=== PATIENT | male | born 1980 | race American Indian/Alaskan Native ===

== ENCOUNTER 2018-05-01 20:05 | Emergency (ER) | payer SELFPAY ==
[2018-05-01 20:38] LABS: Absolute Lymphocytes (CBC) 3.2 K/uL (0.7-4.9); Absolute Monocytes 0.7 K/uL (0.1-1.3); Absolute Neutrophil 7.1 K/uL (1.8-8.0); Basophils % 0.5 % (0-1.3); Eosinophils % 0.6 % (0-4.4); Lymphocytes % 28.7 % (15.3-44.8); MCH 30.6 pg (27.0-35.0); MCV 89.9 fL (80-100); MPV 8.3 fL (7.6-11.3); Monocytes % 6.4 % (3.3-12.3); RBC Red Blood Cell Count 5.12 M/uL (4.33-5.43)
[2018-05-01 20:46] LABS: Potassium 4.5 mEq/L (3.6-5.0)
--- NOTE | 2018-05-01 20:48 | RAD REPORT ---
EXAM DESCRIPTION: CT - Head C Spine Dominic Bedoya - 05/01/2018 8:23 pm CLINICAL HISTORY: Head and neck injury with chest and abdominal pain status post fall. Head and neck pain . Seizure . TECHNIQUE: Computed axial tomography of the head and cervical spine was obtained Computed axial tomography of the chest, abdomen and pelvis was obtained. 100 cc Isovue-300 was given intravenously coronal and sagittal reconstruction was performed. All CT scans are performed using dose optimization technique as appropriate and may include automated exposure control or mA/KV adjustment according to patient size. COMPARISON: Multiple prior exams. FINDINGS: An intracranial bleed is not seen. The ventricles are normal in caliber. An extra-axial fl uid collection is not noted. Fluid within the sinuses/mastoids is not seen A cervical fracture is not seen. No dislocation is seen. A mediastinal hematoma is not noted. A pleural effusion is not present. A lung contusion is not seen. The liver, spleen, pancreas, adrenals, kidneys and bladder appear unremarkable. IMPRESSION: 1. No acute intracranial abnormality is seen 2. A cervical fracture is not visualized. If the patient continues have symptoms to suggest intracran ial/spinal cord pathology then MRI would be recommended. 3. No traumatic injury involving the chest, abdomen or pelvis is seen.
--- NOTE | 2018-05-01 20:55 | RAD REPORT ---
EXAM DESCRIPTION: RAD - Humerus Left - 05/01/2018 8:40 pm CLINICAL HISTORY: Left arm pain status post fall FINDINGS: No fracture is seen
[2018-05-01] MEDS ORDERED: NA CHLORIDE 0.9% 1,000 ML ONE (21:30)
[2018-05-01] MEDS ORDERED: HYDROCODONE/APAP 10/325 TAB ONE (21:34)
--- NOTE | 2018-05-01 22:49 | ER ---
Nurse's Notes [facility] Name: Anil Prasad Age: 37 yrs Sex: Male : 1980 Arrival Date: 05/01/2018 Time: 20:07 Bed 6 Private MD: Diagnosis: Seizure;Dehydration;Contusion of left upper arm;Contusion of left back wall of thorax Presentation: 05/01 20:09 Presenting complaint: EMS states: Witnessed seizure and fall down flight of stairs lp1 about 1915 today; No hx of seizures; Vomited x1 per EMS, pain to L elbow, feeling dizzy; Denies any ETOH, drug use; Patient states he has been working outside all day; Patient post ictal on arrival of EMS. Transition of care: patient was not received from another setting of care. Onset of symptoms was May 01, 2018 at 19:15. Risk Assessment: Do you want to hurt yourself or someone else? Patient reports no desire to harm self or others. Initial Sepsis Screen: Does the patient meet any 2 criteria? No. Patient's initial sepsis screen is negative. Does the patient have a suspected source of infection? No. Patient's initial sepsis screen is negative. Care prior to arrival: Cervical collar in place. Placed on backboard. IV initiated. 20 GA, in the right antecubital area, Glucose check: 179 Oxygen administered. via nasal cannula. 20:09 Method Of Arrival: EMS: [facility] lp1 20:09 Acuity: BERTRAND 2 lp1 20:17 Mechanism of Injury: Fall from standing position. down flight of stairs. Trauma event lp1 details: Injury occurred in the [facility], Injury occurred: at home. Injury occurred: May 01, 2018 Injury occurred at: 19:15. Trauma Activation: Alert Physician: ED Physician; Name: Dr. Woods; Notified At: 19:57; Arrived At: 19:57 Physician: General Surgeon; Name: N/A; Notified At: 19:57; Arrived At: Physician: Radiology; Name: Alek Camacho; Notified At: 19:57; Arrived At: 19:59 Physician: Respiratory; Name: N/A; Notified At: 19:57; Arrived At: Physician: Lab; Name: N/A; Notified At: 19:57; Arrived At: Historical: - Allergies: 20:16 No Known Allergies; lp1 - Home Meds: 20:16 None [Active]; lp1 - PMHx: 20:16 Asthma; lp1 - PSHx: 20:16 None; lp1 - Immunization history:: Adult Immunizations up to date. - Social history:: Smoking status: Patient uses tobacco products, denies chronic smoking, but will smoke occasionally. - Immunization history: Last tetanus immunization: - up to date. - Ebola Screening: : No symptoms or risks identified at this time. - Family history:: not pertinent. - Hospitalizations: : No recent hospitalization is reported. Screenin:18 Abuse screen: Denies threats or abuse. Denies injuries from another. Nutritional lp1 screening: No deficits noted. Tuberculosis screening: No symptoms or risk factors identified. Fall Risk None identified. Primary Survey: 20:14 A: Airway: patent. Breathing/Chest: Respiratory pattern: regular, Respiratory effort: lp1 spontaneous, Breath sounds: clear, bilaterally. Chest inspection: symmetrical rise and fall of the chest. Circulation: Skin color: pink, Skin temperature: warm, dry. Disability Alert. 21:37 Reassessment Breathing/Chest Respiratory pattern Regular Respiratory effort Spontaneous lp1 Breath sounds Clear Chest inspection Symmetrical Disability Alert. Assessment: 20:19 General: Appears in no apparent distress. Behavior is appropriate for age. Pain: lp1 Complains of pain in left elbow Pain currently is 7 out of 10 on a pain scale. Quality of pain is described as sharp. Neuro: Level of Consciousness is awake, alert, obeys commands, Oriented to person, place, situation, Moves all extremities. Full function Pupils are PERRLA, Intact. EENT: No deficits noted. Cardiovascular: Capillary refill < 3 seconds in bilateral fingers toes Patient's skin is warm and dry. Respiratory: Airway is patent Trachea midline Respiratory effort is even, Respiratory pattern is regular, Breath sounds are clear bilaterally. GI: Abdomen is non-distended. : No signs and/or symptoms were reported regarding the genitourinary system. Derm: Skin is intact, Skin is dry, Skin is normal. Musculoskeletal: Circulation, motion, and sensation intact. 21:01 Reassessment: Patient and/or family updated on plan of care and expected duration. Pain lp1 level reassessed. Patient crying, states being upset about "something else"; Aware of waiting for results. 21:36 Reassessment: C-collar removed from patient per Provider; Patient complaint of pain to lp1 lower posterior neck; provider notified; Verbal order to administer [place] 10-325 PO. 22:30 Reassessment: Patient resting, eyes closed, respirations unlabored. lp1 22:30 Reassessment: Patient appears in no apparent distress at this time. No changes from lp1 previously documented assessment. Patient and/or family updated on plan of care and expected duration. Pain level reassessed. Vital Signs: 20:13 BP 140 / 94; Pulse 87; Resp 18; Temp 98.7(O); Pulse Ox 98% on R/A; Weight 84.82 kg; lp1 Height 5 ft. 9 in. (175.26 cm); 21:02 BP 134 / 78; Pulse 81; Resp 20; Pulse Ox 98% on R/A; lp1 22:00 BP 115 / 73; Pulse 74; Resp 14; Pulse Ox 100% on R/A; lp1 23:00 BP 128 / 82; Pulse 77; Resp 16; Pulse Ox 100% on R/A; lp1 20:13 Body Mass Index 27.61 (84.82 kg, 175.26 cm) lp1 Dagmar Coma Score: 20:16 Eye Response: spontaneous(4). Verbal Response: oriented(5). Motor Response: obeys lp1 commands(6). Total: 15. Trauma Score (Adult): 20:14 Eye Response: spontaneous(1); Verbal Response: oriented(1); Motor Response: obeys lp1 commands(2); Systolic BP: > 89 mm Hg(4); Respiratory Rate: 10 to 29 per min(4); [place] Score: 15; Trauma Score: 12 21:02 Eye Response: spontaneous(1); Verbal Response: oriented(1); Motor Response: obeys lp1 commands(2); Systolic BP: > 89 mm Hg(4); Respiratory Rate: 10 to 29 per min(4); Dagmar Score: 15; Trauma Score: 12 22:00 Eye Response: spontaneous(1); Verbal Response: oriented(1); Motor Response: obeys lp1 commands(2); Systolic BP: > 89 mm Hg(4); Respiratory Rate: 10 to 29 per min(4); [place] Score: 15; Trauma Score: 12 23:00 Eye Response: spontaneous(1); Verbal Response: oriented(1); Motor Response: obeys lp1 commands(2); Systolic BP: > 89 mm Hg(4); Respiratory Rate: 10 to 29 per min(4); [place] Score: 15; Trauma Score: 12 ED Course: 20:07 Patient arrived in ED. rn 20:07 Bobby Woods MD is Attending Physician. rn 20:08 Afua Rasmussen RN is Primary Nurse. lp1 20:12 Triage completed. lp1 20:13 Arm band placed on left wrist. lp1 20:16 Maintain EMS IV. Dressing intact. Good blood return noted. Site clean \\T\\ dry. Gauge \\T\\ lp 1 site: 20g R AC. 20:[address] via stretcher. sw 20:18 Patient has correct armband on for positive identification. Placed in gown. Call light lp1 in reach. Seizure precautions initiated. case monitor on. Pulse ox on. NIBP on. 20:18 Oxygen administration via nasal cannula \\T\\ 2L/min. Thermoregulation: warm blanket given lp1 to patient. 20:23 CT Traumagram (Head C Spine CAP W Con) In Process Unspecified. EDMS 20:23 CT completed. Patient moved back from CT. vm2 20:41 XRAY Humerus LEFT In Process Unspecified. EDMS 22:44 EKG done, by ED staff, reviewed by Bobby Woods MD. cb2 23:40 No provider procedures requiring assistance completed. IV discontinued, No lp1 redness/swelling at site. Pressure dressing applied. Administered Medications: 21:36 Drug: NS 0.9% 1000 ml Route: IV; Rate: 1000 ml; Site: right antecubital; lp1 23:59 Follow up: IV Status: Completed infusion; IV Intake: 1000ml lp1 21:36 Drug: [place] 10 mg-325 mg 1 tabs Route: PO; lp1 23:59 Follow up: Response: Pain is decreased lp1 Point of Care Testing: Blood Glucose: 20:42 Blood Glucose: 80 mg/dL; lp1 Ranges: Intake: 23:00 IV: 1000ml (IV Fluid); Total: 1000ml. lp1 23:59 IV: 1000ml; Total: 2000ml. lp1 Outcome: 22:48 Discharge ordered by . rn 23:42 Discharged to home ambulatory, with friend. lp1 23:42 Condition: stable 23:42 Discharge instructions given to patient, Instructed on discharge instructions, follow up and referral plans. 23:45 Patient left the ED. lp1 23:58 Patient's length of stay in the Emergency Department was greater than 2 hours. waiting lp1 for results Patient's length of stay extended due to Signatures: Dispatcher [employer] EDMS Bobby Woods MD MD rn Pena, ARAM Caal RN lp1 Milka Flores Victoria 2 Jorge A Aponte Corrections: (The following items were deleted from the chart) 20:13 20:09 Presenting complaint: EMS states: Witnessed seizure and fall down flight of lp1 stairs about 1914 today; No hx of seizures; Vomited x1 per EMS, pain to L elbow, feeling dizzy; Denies any ETOH, drug use; Patient states he has been working outside all day lp1 23:24 21:36 Reassessment: Patient complaint of pain to lower posterior neck; provider lp1 notified; Verbal order to administer [place] 10-325 PO lp1 [id number] 00:00 06/08 23:58 Patient left the ED. lp1 lp1
--- NOTE | 2018-05-01 22:49 | EDPHYS ---
Physician Documentation [facility] Name: Anil Prasad Age: 37 yrs Sex: Male : 1980 Arrival Date: 05/01/2018 Time: 20:07 Bed 6 Private MD: ED Physician Bobby Woods HPI: 05/01 21:19 This 37 yrs old Other Male presents to ER via EMS with complaints of Seizure, Fall rn Injury. 21:19 The patient presents after having a single isolated seizure. Seizure onset: just prior rn to arrival. Associated injury: Back: Left upper extremity:. Current symptoms: Currently, the patient is not experiencing any symptoms. The patient has not recently seen a physician. Per EMS, possible seizure activity noted, patient fell down half a flight of stairs, patient doesn't recall events, had been working outside all day, hasn't had much to eat or drink, no drugs or ETOH. Pt reports upper back pain and left arm pain. . Historical: - Allergies: 20:16 No Known Allergies; lp1 - Home Meds: 20:16 None [Active]; lp1 - PMHx: 20:16 Asthma; lp1 - PSHx: 20:16 None; lp1 - Immunization history:: Adult Immunizations up to date. - Social history:: Smoking status: Patient uses tobacco products, denies chronic smoking, but will smoke occasionally. - Immunization history: Last tetanus immunization: - up to date. - Ebola Screening: : No symptoms or risks identified at this time. - Family history:: not pertinent. - Hospitalizations: : No recent hospitalization is reported. ROS: 21:19 Constitutional: Negative for fever, chills, and weight loss, Eyes: Negative for injury, rn pain, redness, and discharge, Neck: Negative for injury, pain, and swelling, Cardiovascular: Negative for chest pain, palpitations, and edema, Respiratory: Negative for shortness of breath, cough, wheezing, and pleuritic chest pain, Abdomen/GI: Negative for abdominal pain, diarrhea, and constipation, Back: Negative for injury and pain, MS/Extremity: Negative for injury and deformity, Skin: Negative for injury, rash, and discoloration, Neuro: Negative for headache, numbness, tingling Exam: 21:19 Constitutional: This is a well developed, well nourished patient who is awake, alert, rn and in no acute distress. Head/Face: Normocephalic, atraumatic. Eyes: Pupils equal round and reactive to light, extra-ocular motions intact. Lids and lashes normal. Conjunctiva and sclera are non-icteric and not injected. Cornea within normal limits. Periorbital areas with no swelling, redness, or edema. ENT: No oral trauma Neck: in ccollar, no midline tenderness Cardiovascular: Regular rate and rhythm with a normal S1 and S2. No gallops, murmurs, or rubs. Normal PMI, no JVD. No pulse deficits. Respiratory: Lungs have equal breath sounds bilaterally, clear to auscultation and percussion. No rales, rhonchi or wheezes noted. No increased work of breathing, no retractions or nasal flaring. Abdomen/GI: Soft, non-tender, with normal bowel sounds. No distension or tympany. No guarding or rebound. No evidence of tenderness throughout. Back: No spinal tenderness. No costovertebral tenderness. MS/ Extremity: Pulses equal, no cyanosis. Neurovascular intact. Full, normal range of motion. Equal circumference. Neuro: Awake and alert, GCS 15, oriented to person, place, time, and situation. Motor strength 5/5 in all extremities. Sensory grossly intact. 22:47 ECG was reviewed by the Attending Physician. rn Vital Signs: 20:13 BP 140 / 94; Pulse 87; Resp 18; Temp 98.7(O); Pulse Ox 98% on R/A; Weight 84.82 kg; lp1 Height 5 ft. 9 in. (175.26 cm); 21:02 BP 134 / 78; Pulse 81; Resp 20; Pulse Ox 98% on R/A; lp1 22:00 BP 115 / 73; Pulse 74; Resp 14; Pulse Ox 100% on R/A; lp1 23:00 BP 128 / 82; Pulse 77; Resp 16; Pulse Ox 100% on R/A; lp1 20:13 Body Mass Index 27.61 (84.82 kg, 175.26 cm) lp1 [place] Coma Score: 20:16 Eye Response: spontaneous(4). Verbal Response: oriented(5). Motor Response: obeys lp1 commands(6). Total: 15. Trauma Score (Adult): 20:14 Eye Response: spontaneous(1); Verbal Response: oriented(1); Motor Response: obeys lp1 commands(2); Systolic BP: > 89 mm Hg(4); Respiratory Rate: 10 to 29 per min(4); [place] Score: 15; Trauma Score: 12 21:02 Eye Response: spontaneous(1); Verbal Response: oriented(1); Motor Response: obeys lp1 commands(2); Systolic BP: > 89 mm Hg(4); Respiratory Rate: 10 to 29 per min(4); Dagmar Score: 15; Trauma Score: 12 22:00 Eye Response: spontaneous(1); Verbal Response: oriented(1); Motor Response: obeys lp1 commands(2); Systolic BP: > 89 mm Hg(4); Respiratory Rate: 10 to 29 per min(4); [place] Score: 15; Trauma Score: 12 23:00 Eye Response: spontaneous(1); Verbal Response: oriented(1); Motor Response: obeys lp1 commands(2); Systolic BP: > 89 mm Hg(4); Respiratory Rate: 10 to 29 per min(4); [place]mar Score: 15; Trauma Score: 12 MDM: 20:07 Patient medically screened. rn 22:36 Differential diagnosis: seizure, dehydration, hypoglycemia, drug use, heat illness. rn Data reviewed: vital signs, nurses notes, lab test result(s), radiologic studies, CT scan, plain films, and as a result, I will discharge patient. 22:47 Counseling: I had a detailed discussion with the patient and/or guardian regarding: the rn historical points, exam findings, and any diagnostic results supporting the discharge/admit diagnosis, lab results, radiology results, the need for outpatient follow up, to return to the emergency department if symptoms worsen or persist or if there are any questions or concerns that arise at home. Response to treatment: the patient's symptoms have markedly improved after treatment, the patient's condition has returned to base line, the patient is now symptom free, patient is well hydrated. and as a result, I will discharge patient. Special discussion: I discussed with the patient/guardian in detail that at this point there is no indication for admission to the hospital. It is understood, however, that if the symptoms persist or worsen the patient needs to return immediately for re-evaluation. ED course: Pt feels much better, no seizure like activity here, w/u normal here, states has been moving and working all day in heat, not eating for 2 days or drinking.. 05/01 20:10 Order name: Basic Metabolic Panel; Complete Time: 20:56 rn 05/01 20:10 Order name: CBC with Diff; Complete Time: 20:56 rn 08 20:10 Order name: CT Traumagram (Head C Spine CAP W Con); Complete Time: 20:56 rn 05/01 20:10 Order name: Type And Screen; Complete Time: 21:14 rn 05/01 20:10 Order name: XRAY Humerus LEFT; Complete Time: 20:56 rn 08 20:10 Order name: Labs collected and sent; Complete Time: 20:44 rn 05/01 20:10 Order name: Glucose Level; Complete Time: 20:43 rn 05/01 22:37 Order name: EKG; Complete Time: 22:37 rn 05/01 22:37 Order name: EKG - Nurse/Tech; Complete Time: 23:10 rn EC:47 Rate is 69 beats/min. Rhythm is regular. QRS [place] is Normal. MS interval is normal. QRS rn interval is normal. QT interval is normal. No Q waves. T waves are Normal. No ST changes noted. Clinical impression: Normal ECG. Interpreted by me. Administered Medications: 21:36 Drug: NS 0.9% 1000 ml Route: IV; Rate: 1000 ml; Site: right antecubital; lp1 23:59 Follow up: IV Status: Completed infusion; IV Intake: 1000ml lp1 21:36 Drug: [place] 10 mg-325 mg 1 tabs Route: PO; lp1 23:59 Follow up: Response: Pain is decreased lp1 Point of Care Testing: Blood Glucose: 20:42 Blood Glucose: 80 mg/dL; lp1 Ranges: Critical Glucose Levels:Adult <50 mg/dl or >400 mg/dl <40 mg/dl or >180 mg/dl Disposition: 05/01/18 22:48 Discharged to Home. Impression: Seizure, Dehydration, Contusion of left upper arm, Contusion of left back wall of thorax. - Condition is Stable. - Discharge Instructions: Dehydration, Adult, Nonepileptic Seizures, Seizure, Adult. - Medication Reconciliation Form, Thank You Letter, Antibiotic Education, Prescription Opioid Use form. - Follow up: Private Physician; When: As needed; Reason: Recheck today's complaints, Re-evaluation by your physician. - Problem is new. - Symptoms have improved. Signatures: Dispatcher [employer] [facility] Bobby Woods MD MD rn Pena, Laura, RN RN lp1 Corrections: (The following items were deleted from the chart) 20:56 20:10 Creatinine for Radiology+C.LAB.BRZ ordered. [facility] 23:58 22:48 05/01/2018 22:48 Discharged to Home. Impression: Seizure; Dehydration; Contusion lp1 of left upper arm; Contusion of left back wall of thorax. Condition is Stable. Forms are Medication Reconciliation Form, Thank You Letter, Antibiotic Education, Prescription Opioid Use. Follow up: Private Physician; When: As needed; Reason: Recheck today's complaints, Re-evaluation by your physician. Problem is new. Symptoms have improved. rn
[2018-05-02 00:37] VITALS: TEMP 98.7
[2018-05-02 00:39] VITALS: O2SAT 100
[2018-05-02 00:40] VITALS: BP 128/82
--- NOTE | 2018-05-02 07:55 | EKG ---
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
== END 2018-05-01 23:58 | disposition home or self-care (01) ==
LOC: ER 20:05
DX: E86.0 Dehydration (principal); S40.022A Contusion of left upper arm, initial encounter; S20.222A Contusion of left back wall of thorax, initial encounter; W10.9XXA Fall (on) (from) unspecified stairs and steps, initial encounter; Y93.9 Activity, unspecified; Y92.9 Unspecified place or not applicable; Z72.0 Tobacco use
CPT/HCPCS: 36415; 70450; 71260; 72125; 74177; 80048; 82962; 85025; 86850; 86900; 86901; 93005; 96360; 96361; 99285; J7030; Q9967

== ENCOUNTER 2018-05-16 04:18 | Emergency (ER) | payer SELFPAY ==
[2018-05-16] MEDS ORDERED: NA CHLORIDE 0.9% 1,000 ML ONE (04:35)
[2018-05-16 05:37] LABS: Absolute Lymphocytes (CBC) 1.3 K/uL (0.7-4.9); Absolute Monocytes 0.6 K/uL (0.1-1.3); Absolute Neutrophil 4.5 K/uL (1.8-8.0); Basophils % 0.4 % (0-1.3); Eosinophils % 0.1 % (0-4.4); Lymphocytes % 19.6 % (15.3-44.8); MCH 30.2 pg (27.0-35.0); MCV 89.5 fL (80-100); MPV 7.9 fL (7.6-11.3); Monocytes % 9.1 % (3.3-12.3); RBC Red Blood Cell Count 5.25 M/uL (4.33-5.43)
[2018-05-16 05:54] LABS: Potassium 3.4 mmol/L (3.5-5.1)
--- NOTE | 2018-05-16 06:24 | ER ---
Nurse's Notes [facility] Name: Anil Prasad Age: 37 yrs Sex: Male : 1980 Arrival Date: 05/16/2018 Time: 04:22 Bed 6 Private MD: None, None Diagnosis: Weakness;Major depressive disorder, recurrent Presentation: 05/16 04:18 Presenting complaint: EMS states: It was reported pt had been unresponsive in gas [place] station, upon arrival EMS reports pt was alert and walking around. Pt reported weakness and bone pain. Transition of care: patient was not received from another setting of care. No acute neurological deficit is noted. Care prior to arrival: None. 04:18 Method Of Arrival: EMS: [facility] ea 04:18 Acuity: BERTRAND 4 ea 04:33 Onset of symptoms was May 16, 2018. Risk Assessment: Do you want to hurt yourself or ea someone else? Patient reports no desire to harm self or others. Initial Sepsis Screen: Does the patient meet any 2 criteria? HR > 90 bpm. Yes Does the patient have a suspected source of infection? Yes: Other: pt complains of vomiting and diarrhea. Triage Assessment: 04:18 General: Appears uncomfortable, Behavior is calm, cooperative, appropriate for age. ea Pain: Complains of pain in generalized pain Pain currently is 7 out of 10 on a pain scale. Quality of pain is described as aching. EENT: No signs and/or symptoms were reported regarding the EENT system. Neuro: Level of Consciousness is awake, alert, obeys commands, Oriented to person, place, time, situation. Cardiovascular: Patient's skin is warm and dry. Respiratory: Airway is patent Respiratory effort is even, unlabored, Respiratory pattern is regular, symmetrical. GI: Abdomen is non-distended. GI: Reports diarrhea, vomiting, since yesterday. : No signs and/or symptoms were reported regarding the genitourinary system. Derm: Skin is dry, Skin is normal, Skin temperature is warm. Musculoskeletal: Reports generalized weakness. Historical: - Allergies: 06:11 No Known Allergies; gs - PMHx: 06:11 Asthma; gs - Immunization history:: Adult Immunizations up to date. - Social history:: Smoking status: Patient uses tobacco products, 2 to 3 cigarettes a day. - Ebola Screening: : No symptoms or risks identified at this time. Screenin:32 Abuse screen: Denies threats or abuse. Nutritional screening: No deficits noted. ea Tuberculosis screening: No symptoms or risk factors identified. Fall Risk None identified. Assessment: 05:31 Reassessment: Patient and/or family updated on plan of care and expected duration. Pain ea level reassessed. Patient is alert, oriented x 3, equal unlabored respirations, skin warm/dry/pink. 06:11 Reassessment: Patient and/or family updated on plan of care and expected duration. Pain ea level reassessed. Pt resting with eyes closed, respirations even and unlabored, chest expansions even and symmetrical. No s/s of pain or discomfort noted at this time. 06:37 Reassessment: Patient and/or family updated on plan of care and expected duration. Pain ea level reassessed. Patient is alert, oriented x 3, equal unlabored respirations, skin warm/dry/pink. Discharge instructions given to patient, verbalized the understanding of instruction. Vital Signs: 04:18 BP 142 / 77; Pulse 101; Resp 18; Temp 100.5; Pulse Ox 98% on R/A; Weight 82.55 kg; ea Height 5 ft. 9 in. (175.26 cm); Pain 8/10; 05:33 BP 116 / 58; Pulse 98; Resp 18; Temp 100; Pulse Ox 99% on R/A; Pain 0/10; ea 06:10 BP 114 / 88; Pulse 89; Resp 18; Temp 99.5(O); Pulse Ox 98% on R/A; ea 04:18 Body Mass Index 26.88 (82.55 kg, 175.26 cm) ea ED Course: 04:22 Patient arrived in ED. ds1 04:22 America Browne, ARAM is Primary Nurse. ea 04:22 None, None is Private Physician. ds1 04:26 Triage completed. ea 04:30 Fernie Camarena MD is Attending Physician. gs 04:33 Arm band placed on right wrist. ea 04:34 Patient has correct armband on for positive identification. Placed in gown. Bed in low ea position. Call light in reach. Side rails up X2. 04:48 Inserted saline lock: 20 gauge in right forearm, using aseptic technique. Blood ea collected. 06:38 No provider procedures requiring assistance completed. IV discontinued, intact, ea bleeding controlled, No redness/swelling at site. Pressure dressing applied. Administered Medications: 04:48 Drug: NS 0.9% 1000 ml Route: IV; Rate: 1 bolus; Site: right forearm; ea 06:09 Follow up: Response: No adverse reaction; IV Status: Completed infusion ea Outcome: 06:23 Discharge ordered by . gs 06:39 Condition: improved ea 06:39 Discharge instructions given to patient, Instructed on discharge instructions, follow up and referral plans. Demonstrated understanding of instructions, follow-up care. 06:47 Discharged to [facility] ride. ea 06:48 Patient left the ED. ea Signatures: Zoie Ferrari ds1 America Browne RN RN Fernie Perry MD MD
--- NOTE | 2018-05-16 06:24 | EDPHYS ---
Physician Documentation [facility] Name: Anil Prasad Age: 37 yrs Sex: Male : 1980 Arrival Date: 05/16/2018 Time: 04:22 Bed 6 Private MD: None, None ED Physician Fernie Camarena HPI: 05/16 06:04 This 37 yrs old Other Male presents to ER via EMS with complaints of Weakness. gs 06:04 The patient presents to the emergency department with weakness of the entire body, gs generalized weakness. Onset: The symptoms/episode began/occurred 3 day(s) ago, and became persistent. Associated signs and symptoms: Pertinent negatives: dizziness, fever, headache. Severity of symptoms: At their worst the symptoms were moderate in the emergency department the symptoms are unchanged. The patient has experienced similar episodes in the past, a few times. is recently homeless sleeping in awkward position in car says whole body aches, is depressed lost job and home recently denies suicidal ideation or plan. Historical: - Allergies: 06:11 No Known Allergies; gs - PMHx: 06:11 Asthma; gs - Immunization history:: Adult Immunizations up to date. - Social history:: Smoking status: Patient uses tobacco products, 2 to 3 cigarettes a day. - Ebola Screening: : No symptoms or risks identified at this time. ROS: 06:11 All other systems are negative. gs Exam: 06:11 Head/Face: Normocephalic, atraumatic. Eyes: Pupils equal round and reactive to light, gs extra-ocular motions intact. Lids and lashes normal. Conjunctiva and sclera are non-icteric and not injected. Cornea within normal limits. Periorbital areas with no swelling, redness, or edema. ENT: Nares patent. No nasal discharge, no septal abnormalities noted. Tympanic membranes are normal and external auditory canals are clear. Oropharynx with no redness, swelling, or masses, exudates, or evidence of obstruction, uvula midline. Mucous membranes moist. Neck: Trachea midline, no thyromegaly or masses palpated, and no cervical lymphadenopathy. Supple, full range of motion without nuchal rigidity, or vertebral point tenderness. No Meningismus. Chest/axilla: Normal chest wall appearance and motion. Nontender with no deformity. No lesions are appreciated. Cardiovascular: Regular rate and rhythm with a normal S1 and S2. No gallops, murmurs, or rubs. Normal PMI, no JVD. No pulse deficits. Respiratory: Lungs have equal breath sounds bilaterally, clear to auscultation and percussion. No rales, rhonchi or wheezes noted. No increased work of breathing, no retractions or nasal flaring. Abdomen/GI: Soft, non-tender, with normal bowel sounds. No distension or tympany. No guarding or rebound. No evidence of tenderness throughout. Back: No spinal tenderness. No costovertebral tenderness. Full range of motion. Skin: Warm, dry with normal turgor. Normal color with no rashes, no lesions, and no evidence of cellulitis. MS/ Extremity: Pulses equal, no cyanosis. Neurovascular intact. Full, normal range of motion. Neuro: Awake and alert, GCS 15, oriented to person, place, time, and situation. Cranial nerves II-XII grossly intact. Motor strength 5/5 in all extremities. Sensory grossly intact. Cerebellar exam normal. Normal gait. 06:11 Constitutional: The patient appears alert, awake. 06:11 Psych: Behavior/mood is depressed, Affect is flat, Oriented to person, place, time, Patient has no thoughts/intents to harm self or others. Vital Signs: 04:18 BP 142 / 77; Pulse 101; Resp 18; Temp 100.5; Pulse Ox 98% on R/A; Weight 82.55 kg; ea Height 5 ft. 9 in. (175.26 cm); Pain 8/10; 05:33 BP 116 / 58; Pulse 98; Resp 18; Temp 100; Pulse Ox 99% on R/A; Pain 0/10; ea 06:10 BP 114 / 88; Pulse 89; Resp 18; Temp 99.5(O); Pulse Ox 98% on R/A; ea 04:18 Body Mass Index 26.88 (82.55 kg, 175.26 cm) ea MDM: 04:30 Patient medically screened. 06:11 Data reviewed: vital signs, nurses notes. Response to treatment: the patient's symptoms gs have mildly improved after treatment, and as a result, I will discharge patient. ED course: ddx-weakness, rhabdomyolysis, dehydration. 05/16 04:30 Order name: CPK; Complete Time: 06:04 05/16 04:30 Order name: CBC with Diff; Complete Time: 06:04 05/16 04:30 Order name: Basic Metabolic Panel; Complete Time: 06:04 Administered Medications: 04:48 Drug: NS 0.9% 1000 ml Route: IV; Rate: 1 bolus; Site: right forearm; ea 06:09 Follow up: Response: No adverse reaction; IV Status: Completed infusion ea Disposition: 05/16/18 06:23 Discharged to Home. Impression: Weakness, Major depressive disorder, recurrent. - Condition is Stable. - Discharge Instructions: Depression, Adult, Weakness, Fatigue. - Medication Reconciliation Form, Thank You Letter, Antibiotic Education, Prescription Opioid Use form. - Follow up: Private Physician; When: 2 - 3 days; Reason: Re-evaluation by your physician. Signatures: Dispatcher [employer] America Murry RN RN ea Starr, Gregory, MD MD gs Corrections: (The following items were deleted from the chart) 06:48 06:23 05/16/2018 06:23 Discharged to Home. Impression: Weakness; Major depressive ea disorder, recurrent. Condition is Stable. Forms are Medication Reconciliation Form, Thank You Letter, Antibiotic Education, Prescription Opioid Use. Follow up: Private Physician; When: 2 - 3 days; Reason: Re-evaluation by your physician.
[2018-05-16 07:36] VITALS: BP 114/88; TEMP 99.5; O2SAT 98
== END 2018-05-16 06:48 | disposition home or self-care (01) ==
LOC: ER 04:18
DX: R53.1 Weakness (principal); F33.9 Major depressive disorder, recurrent, unspecified; J45.909 Unspecified asthma, uncomplicated; F17.210 Nicotine dependence, cigarettes, uncomplicated
CPT/HCPCS: 36415; 80048; 82550; 85025; 96360; 99284; J7030

== ENCOUNTER 2018-11-08 09:21 | Emergency (ER) | payer SELFPAY ==
[2018-11-08] MEDS ORDERED: NA CHLORIDE 0.9% 1,000 ML ONE (09:51)
[2018-11-08] MEDS ORDERED: PANTOPRAZOLE 40 MG INJ ONE (09:51)
[2018-11-08 09:57] LABS: Absolute Lymphocytes (CBC) 3.2 K/uL (0.7-4.9); Absolute Monocytes 0.6 K/uL (0.1-1.3); Absolute Neutrophil 4.7 K/uL (1.8-8.0); Basophils % 0.8 % (0-1.3); Eosinophils % 1.8 % (0-4.4); Hematocrit 42.6 % (39.6-49.0); Lymphocytes % 36.4 % (15.3-44.8); MCH 30.9 pg (27.0-35.0); MCV 89.4 fL (80-100); Monocytes % 6.4 % (3.3-12.3); RBC Red Blood Cell Count 4.76 M/uL (4.33-5.43)
[2018-11-08 10:36] LABS: ALT/SGPT 17 U/L (12-78); AST/SGOT 21 U/L (15-37); Albumin 3.5 g/dL (3.4-5.0); Alkaline Phosphatase 102 U/L (45-117); BUN Blood Urea Nitrogen 26 mg/dL (7-18); Bicarbonate 28 mmol/L (21-32); Bilirubin Direct < 0.1 mg/dL (0-0.2); Bilirubin Total 0.3 mg/dL (0.2-1.0); Glucose Level 112 mg/dL (74-106); Lipase 127 U/L (73-393); Magnesium 2.3 mg/dL (1.8-2.4); Phosphorus 2.9 mg/dL (2.5-4.9); Potassium 3.9 mmol/L (3.5-5.1); Protein, Total 6.7 g/dL (6.4-8.2); Sodium Level 139 mmol/L (136-145); Troponin I < 0.02 ng/mL (0.0-0.045)
--- NOTE | 2018-11-08 11:02 | RAD REPORT ---
EXAM DESCRIPTION: Guilherme Single View11/08/2018 10:46 am CLINICAL HISTORY: Abdominal pain COMPARISON: 2016 FINDINGS: The lungs appear clear of acute infiltrate. The heart is normal size IMPRESSION: No acute abnormalities displayed
[2018-11-08] MEDS ORDERED: MAGNE/ALUM HYDROXD 30 ML UCUP ONE (11:07)
[2018-11-08] MEDS ORDERED: LIDOCAINE VISCOUS 2% SOLN 15 ML UDC ONE (11:07)
--- NOTE | 2018-11-08 11:37 | EDPHYS ---
Physician Documentation [facility] Name: Anil Prasad Age: 38 yrs Sex: Male : 1980 Arrival Date: 11/08/2018 Time: 09:26 Bed 14 Private MD: ED Physician Fernie Camarena HPI: 11/08 09:45 This 38 yrs old Other Male presents to ER via EMS with complaints of Abdominal Pain. cp 09:45 The patient presents with abdominal pain in the upper abdomen. cp 09:45 Onset: The symptoms/episode began/occurred yesterday. The symptoms do not radiate. cp Associated signs and symptoms: Pertinent positives: nausea, vomiting, and diarrhea, Pertinent negatives: constipation, fever, vomiting blood. The symptoms are described as burning. Modifying factors: the symptoms are aggravated by pressure. Severity of pain: in the emergency department the pain is actually worse. Historical: - Allergies: 09:20 No Known Allergies; rb1 - Home Meds: 09:20 None [Active]; rb1 - PMHx: 09:20 Asthma; rb1 - PSHx: 09:20 Appendectomy; rb1 - Immunization history:: Adult Immunizations up to date. - Social history:: Smoking status: Patient uses tobacco products, denies chronic smoking, but will smoke occasionally. - Ebola Screening: : Patient negative for fever greater than or equal to 101.5 degrees Fahrenheit, and additional compatible Ebola Virus Disease symptoms. ROS: 09:52 Constitutional: Positive for poor PO intake, Negative for fever. cp 09:52 Eyes: Negative for injury, pain, redness, and discharge. cp 09:52 ENT: Negative for drainage from ear(s), ear pain, sore throat, difficulty swallowing, difficulty handling secretions. 09:52 Cardiovascular: Negative for chest pain, edema, palpitations. 09:52 Respiratory: Negative for cough, shortness of breath, wheezing. 09:52 Abdomen/GI: Positive for abdominal pain, nausea, vomiting, and diarrhea, Negative for constipation, dysphagia, black/tarry stool, rectal bleeding. 09:52 Back: Negative for pain at rest, pain with movement, radiated pain. 09:52 : Negative for urinary symptoms, testicular pain 09:52 Skin: Negative for cellulitis, rash. 09:52 Neuro: Negative for altered mental status, headache. 09:52 All other systems are negative. Exam: 09:55 ECG was reviewed by the Attending Physician. cp 09:58 Constitutional: The patient appears in no acute distress, alert, awake, cp non-diaphoretic, non-toxic, well developed, well nourished. 09:58 Head/Face: Normocephalic, atraumatic. Eyes: Pupils equal round and reactive to light, cp extra-ocular motions intact. Lids and lashes normal. Conjunctiva and sclera are non-icteric and not injected. Cornea within normal limits. Periorbital areas with no swelling, redness, or edema. 09:58 ENT: External ear(s): are unremarkable, Ear canal(s): are normal, clear, TM's: dullness, bilaterally, Nose: is normal, Mouth: Lips: dry, Oral mucosa: pink and intact, moist, Posterior pharynx: is normal, airway is patent, no erythema, no exudate. 09:58 Neck: External neck: is normal, ROM/movement: is normal, is supple, without pain, no range of motions limitations, no meningismus, no nuchal rigidity. 09:58 Chest/axilla: Inspection: normal, Palpation: is normal, no crepitus, no tenderness. 09:58 Cardiovascular: Rate: normal, Rhythm: regular, Pulses: Pulses are 2+ in right radial artery and left radial artery. Edema: is not appreciated, JVD: is not appreciated. 09:58 Respiratory: the patient does not display signs of respiratory distress, Respirations: normal, no use of accessory muscles, no retractions, no splinting, no tachypnea, labored breathing, is not present, Breath sounds: are clear throughout, no decreased breath sounds, no stridor, no wheezing. 09:58 Abdomen/GI: Inspection: abdomen appears normal, Bowel sounds: active, all quadrants, Palpation: soft, in all quadrants, moderate abdominal tenderness, in the right upper quadrant and left upper quadrant, rebound tenderness, is not appreciated, voluntary guarding, is elicited in the right upper quadrant and left upper quadrant, involuntary guarding, is not appreciated. 09:58 Back: pain, is absent, ROM is normal. 09:58 Musculoskeletal/extremity: Exam is negative for decreased range of motion, deformity, injury. 09:58 Skin: cellulitis, is not appreciated, no rash present. 09:58 Neuro: Orientation: to person, place \T\ time. Mentation: is normal, Cerebellar function: is grossly normal, Motor: moves all fours, strength is normal, Sensation: is normal. Vital Signs: 09:20 BP 109 / 93; Pulse 91; Resp 24; Temp 98.6(O); Pulse Ox 98% on R/A; Weight 84.37 kg (R); rb1 Height 5 ft. 9 in. (175.26 cm) (R); Pain 10/10; 09:30 BP 138 / 67; Pulse 87; Resp 19; Pulse Ox 97% on R/A; rb1 10:30 BP 132 / 69; Pulse 83; Resp 14; Pulse Ox 99% on R/A; Pain 9/10; rb1 11:30 BP 124 / 54; Pulse 81; Resp 17; Pulse Ox 96% ; rb1 12:30 BP 126 / 73; Pulse 81; Resp 17; Pulse Ox 99% on R/A; rb1 13:30 BP 124 / 68; Pulse 83; Resp 17; Pulse Ox 100% on R/A; rb1 09:20 Body Mass Index 27.47 (84.37 kg, 175.26 cm) rb1 MDM: 09:27 Patient medically screened. cp 10:00 Differential diagnosis: cholecystitis, Cholelithiasis, gastritis, pancreatitis, Peptic cp Ulcer Disease, Perf. Duodenal Ulcer, Perf. Gastric Ulcer, Ureterolithiasis, urinary tract infection. 13:51 Data reviewed: vital signs, nurses notes, lab test result(s), EKG, radiologic studies, cp CT scan, plain films, and as a result, I will discharge patient. 13:51 Test interpretation: by ED physician or midlevel provider: ECG, plain radiologic cp studies. Counseling: I had a detailed discussion with the patient and/or guardian regarding: the historical points, exam findings, and any diagnostic results supporting the discharge/admit diagnosis, lab results, radiology results, to return to the emergency department if symptoms worsen or persist or if there are any questions or concerns that arise at home. ED course: VSS. Symptoms markedly improved and patient observed sleeping in exam room. Will discharge to home for continued monitoring. 11/08 09:37 Order name: Basic Metabolic Panel cp 11/08 09:37 Order name: CBC with Diff cp 11/08 09:37 Order name: Creatinine for Radiology cp 12/16 09:37 Order name: Hepatic Function cp 12/ 09:37 Order name: Lipase cp 11/08 09:37 Order name: Troponin I cp 11/08 09:37 Order name: UDS cp 11/08 09:37 Order name: Magnesium cp 11/08 09:37 Order name: Phosphorus cp 11/08 10:00 Order name: CBC with Automated Diff; Complete Time: 10:13 EDMS 12 10:36 Order name: Basic Metabolic Panel; Complete Time: 11:34 EDMS 12 12:40 Interpretation: Normal except: GLUC 112; BUN 26; GFR 76. cp 11/08 10:36 Order name: Liver (Hepatic) Function; Complete Time: 11:34 EDMS 12 10:36 Order name: Phosphorus; Complete Time: 11:34 EDMS 11/08 10:36 Order name: Troponin I; Complete Time: 11:34 EDMS 11/08 09:37 Order name: IV Saline Lock; Complete Time: 09:55 11/08 09:37 Order name: Labs collected and sent; Complete Time: 09:55 11/08 09:37 Order name: EKG; Complete Time: 09:38 11/08 10:15 Order name: CT Abd/Pelvis - W/Contrast: no oral contrast 11/08 10:15 Order name: XRAY Chest (1 view) 11/08 10:36 Order name: Magnesium; Complete Time: 11:34 EDMS 16 10:36 Order name: Lipase; Complete Time: 11:34 EDMS 16 10:36 Order name: Creatinine (Radiology Only); Complete Time: 11:34 EDMS 16 11:03 Order name: RAD; Complete Time: 11:34 EDMS 16 12:17 Order name: CT; Complete Time: 12:40 EDMS 16 13:06 Order name: Urine Dipstick--Ancillary (enter results) dh3 11/08 13:33 Order name: Urine Drug Screen; Complete Time: 13:51 EDMS 1216 09:37 Order name: Urine Dipstick-Ancillary (obtain specimen); Complete Time: 13:13 11/08 09:37 Order name: EKG - Nurse/Tech; Complete Time: 09:51 11/08 12:42 Order name: PO challenge; Complete Time: 16:57 cp EC:55 Rate is 78 beats/min. Rhythm is regular. SC interval is normal. QRS interval is normal. cp QT interval is normal. Interpreted by me. Reviewed by me. Administered Medications: 09:45 Drug: NS 0.9% 1000 ml Route: IV; Rate: 1 bolus; Site: left antecubital; rb1 10:52 Follow up: IV Status: Completed infusion rb1 09:45 Drug: ProTONIX 40 mg Route: IVP; Site: left antecubital; rb1 10:00 Follow up: Response: No adverse reaction rb1 11:00 Drug: GI Cocktail without - (Maalox Suspension 30 ml, Lidocaine Liquid 2 % 15 rb1 ml) Route: PO; 11:30 Follow up: Response: No adverse reaction rb1 11:51 Drug: fentaNYL (PF) 25 mcg Route: IVP; Site: left antecubital; rb1 12:15 Follow up: Response: No adverse reaction; Pain is decreased rb1 Disposition: 18:48 Co-signature as Attending Physician, Fernie Camarena MD. Disposition: 11/08/18 13:51 Discharged to Home. Impression: Epigastric pain, Nausea and vomiting, Diarrhea, unspecified. - Condition is Stable. - Discharge Instructions: Diarrhea, Adult, Gastritis, Adult, Gastroesophageal Reflux Disease, Adult, Nausea and Vomiting, Adult. - Prescriptions for Bentyl 20 mg Oral Tablet - take 1 tablet by ORAL route every 6 hours As needed; 20 tablet. promethazine 25 mg Oral Tablet - take 1 tablet by ORAL route every 6 hours As needed; 20 tablet. Protonix 40 mg Oral Tablet, Delayed Release (E.C.) - take 1 tablet by ORAL route once daily; 10 tablet. - Medication Reconciliation Form, Thank You Letter, Antibiotic Education, Prescription Opioid Use form. - Follow up: Private Physician; When: 1 - 2 days; Reason: Recheck today's complaints. - Problem is new. - Symptoms have improved. Signatures: Dispatcher [employer] EDMS Lukas Aguero PA PA cp Barber, Rebecca, RN RN rb1 Fernie Camarena MD MD Corrections: (The following items were deleted from the chart) 11:38 11:36 Hospitalization Ordered by Froy Clifford MD for Observation. Preliminary diagnosis cp is Cholecystitis. Bed requested for Telemetry/MedSurg (observation). Status is Observation. Condition is Stable. Problem is new. Symptoms have improved. UTI on Admission? No. cp 14:13 13:51 11/08/2018 13:51 Discharged to Home. Impression: Epigastric pain; Nausea and rb1 vomiting; Diarrhea, unspecified. Condition is Stable. Forms are Medication Reconciliation Form, Thank You Letter, Antibiotic Education, Prescription Opioid Use. Follow up: Private Physician; When: 1 - 2 days; Reason: Recheck today's complaints. Problem is new. Symptoms have improved. cp
--- NOTE | 2018-11-08 11:37 | ER ---
Nurse's Notes [facility] Name: Anil Prasad Age: 38 yrs Sex: Male : 1980 Arrival Date: 11/08/2018 Time: 09:26 Bed 14 Private MD: Diagnosis: Epigastric pain;Nausea and vomiting;Diarrhea, unspecified Presentation: 11/08 09:20 Presenting complaint: EMS states: Pt. is 38 yr. old male, A \\T\\ O x 4. C/O abdominal rb1 pain, weakness, and heartburn. Pain 09/02. When EMS arrived the pt. had LOC and breathing, but reacted to painful stimuli. Abdomen is tender with palpation. Everything started yesterday. No medical history, no home meds, and only surgery was an Appy. SR on EKG. 20 G L AC. BP 154/97, P 93, T 98.1, R 16, 98% RA, BGL 112. 09:20 Transition of care: patient was not received from another setting of care. Onset of rb1 symptoms was November 07, 2018. Risk Assessment: Do you want to hurt yourself or someone else? Patient reports no desire to harm self or others. Initial Sepsis Screen: Does the patient meet any 2 criteria? No. Patient's initial sepsis screen is negative. Does the patient have a suspected source of infection? No. Patient's initial sepsis screen is negative. Care prior to arrival: None. 09:20 Method Of Arrival: EMS: [facility] 09:20 Acuity: BERTRAND 3 rb1 Triage Assessment: 09:20 General: Appears uncomfortable, Behavior is calm, cooperative, Denies fever. Pain: rb1 Complains of pain in abdomen Pain currently is 10 out of 10 on a pain scale. Pain began 1 day ago. Neuro: Level of Consciousness is awake, alert, obeys commands, Oriented to person, place, time, situation, Reports weakness generalized. Cardiovascular: Capillary refill < 3 seconds is brisk in bilateral fingers. Respiratory: Airway is patent Respiratory effort is even, unlabored, Respiratory pattern is regular, symmetrical. GI: Reports diarrhea, nausea, vomiting, since yesterday C/o heartburn. : No signs and/or symptoms were reported regarding the genitourinary system. Derm: Skin is dry, Skin temperature is warm Bruising that is dark purple, green, yellow, on left bicep. Musculoskeletal: Range of motion: intact in all extremities. 09:20 General: Denies drinking or doing drugs. rb1 Historical: - Allergies: 09:20 No Known Allergies; rb1 - Home Meds: :20 None [Active]; rb1 - PMHx: 09:20 Asthma; rb1 - PSHx: 09:20 Appendectomy; rb1 - Immunization history:: Adult Immunizations up to date. - Social history:: Smoking status: Patient uses tobacco products, denies chronic smoking, but will smoke occasionally. - Ebola Screening: : Patient negative for fever greater than or equal to 101.5 degrees Fahrenheit, and additional compatible Ebola Virus Disease symptoms. Screenin:20 Abuse screen: Denies threats or abuse. Nutritional screening: No deficits noted. rb1 Tuberculosis screening: No symptoms or risk factors identified. Fall Risk None identified. Assessment: 09:20 General: See triage assessment. rb1 10:03 Reassessment: Patient appears in no apparent distress at this time. pt is resting with rb1 eyes closed, respirations even, unlabored, snoring is noted at this time. Pt. awakes when spoken to. Call light is within reach. Bed in low, locked position. 11:01 Reassessment: Patient appears in no apparent distress at this time. Patient and/or rb1 family updated on plan of care and expected duration. Pain level reassessed. Patient is alert, oriented x 3, equal unlabored respirations, skin warm/dry/pink. Encouraged the pt. to drink his contrast so we could do the CT. And I asked for urine specimen, pt. stated, "I keep trying to pee but I don't have to go.". 11:30 Reassessment: Pt. is not drinking the contrast, pt. stated, "I can't drink it my rb1 stomach hurts." Provider notified. 11:51 Reassessment: pt. went to CT. rb1 12:30 Reassessment: Patient appears in no apparent distress at this time. Patient and/or rb1 family updated on plan of care and expected duration. Pain level reassessed. Patient is alert, oriented x 3, equal unlabored respirations, skin warm/dry/pink. 13:30 Reassessment: Patient appears in no apparent distress at this time. No changes from rb1 previously documented assessment. Patient states feeling better. Vital Signs: 09:20 BP 109 / 93; Pulse 91; Resp 24; Temp 98.6(O); Pulse Ox 98% on R/A; Weight 84.37 kg (R); rb1 Height 5 ft. 9 in. (175.26 cm) (R); Pain 10/10; 09:30 BP 138 / 67; Pulse 87; Resp 19; Pulse Ox 97% on R/A; rb1 10:30 BP 132 / 69; Pulse 83; Resp 14; Pulse Ox 99% on R/A; Pain 9/10; rb1 11:30 BP 124 / 54; Pulse 81; Resp 17; Pulse Ox 96% ; rb1 12:30 BP 126 / 73; Pulse 81; Resp 17; Pulse Ox 99% on R/A; rb1 13:30 BP 124 / 68; Pulse 83; Resp 17; Pulse Ox 100% on R/A; rb1 09:20 Body Mass Index 27.47 (84.37 kg, 175.26 cm) rb1 ED Course: 09:20 Maintain EMS IV. Dressing intact. Good blood return noted. Site clean \\T\\ dry. Gauge \\T\\ rb 1 site: 20 G L AC. 09:20 Arm band placed on right wrist. rb1 09:20 Patient has correct armband on for positive identification. Bed in low position. Call rb1 light in reach. Side rails up X2. 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 Pulse ox on. NIBP on. 09:26 Patient arrived in ED. iw 09:27 Lukas Aguero PA is PHCP. cp 09:27 Fernie Camarena MD is Attending Physician. cp 09:30 Arminda Contreras, RN is Primary Nurse. rb1 09:36 Triage completed. rb1 09:51 EKG done, by ED staff, reviewed by Lukas SUMMERS. dh3 11:36 Froy Clifford MD is Hospitalizing Provider. cp 11:57 CT completed. Patient tolerated procedure well. Patient moved back from CT. bq 13:13 Urine Dipstick--Ancillary (enter results) Sent. jp3 14:13 No provider procedures requiring assistance completed. IV discontinued, intact, rb1 bleeding controlled, No redness/swelling at site. Pressure dressing applied. Administered Medications: 09:45 Drug: NS 0.9% 1000 ml Route: IV; Rate: 1 bolus; Site: left antecubital; rb1 10:52 Follow up: IV Status: Completed infusion rb1 09:45 Drug: ProTONIX 40 mg Route: IVP; Site: left antecubital; rb1 10:00 Follow up: Response: No adverse reaction rb1 11:00 Drug: GI Cocktail without - (Maalox Suspension 30 ml, Lidocaine Liquid 2 % 15 rb1 ml) Route: PO; 11:30 Follow up: Response: No adverse reaction rb1 11:51 Drug: fentaNYL (PF) 25 mcg Route: IVP; Site: left antecubital; rb1 12:15 Follow up: Response: No adverse reaction; Pain is decreased rb1 Outcome: 11:36 Decision to Hospitalize by Provider. cp 13:51 Discharge ordered by MD. cp 14:13 Patient left the ED. rb1 14:13 Discharged to home ambulatory. rb1 14:13 Condition: stable 14:13 Discharge instructions given to patient, Instructed on discharge instructions, follow up and referral plans. medication usage, Demonstrated understanding of instructions, follow-up care, medications, Prescriptions given X 3. Signatures: Cinthya Beard Irene RN RN iw Lukas Aguero PA PA cp Barber, Rebecca, RN RN rb1 Ina Duran 3 Randolph Palomino jp3 Corrections: (The following items were deleted from the chart) 11:03 11:01 Reassessment: Encouraged the pt. to drink his contrast so we could do the CT. And rb1 I asked for urine specimen, pt. stated, "I keep trying to pee but I don't have to go." rb1
[2018-11-08] MEDS ORDERED: FENTANYL CITR 100 MCG/2 ML ONE (11:56)
--- NOTE | 2018-11-08 12:17 | RAD REPORT ---
EXAM DESCRIPTION: CT - Abdomen Pelvis W Contrast - 11/08/2018 11:59 am CLINICAL HISTORY: Abdominal pain COMPARISON: April 2016 CT imaging TECHNIQUE: Biphasic, helical CT imaging of the abdomen and pelvis was performed following 100 ml non -ionic IV contrast. Limited or no oral contrast was administered. Patient declined usage. All CT scans are performed using dose optimization technique as appropriate and may include automated exposure control or mA/KV adjustment according to patient size. FINDINGS: No suspicious findings in the lung bases. The liver, spleen, and pancreas show no suspicious findings. Liver attenuation is greater than the sp ekaterina but is still borderline for fatty infiltration. Gallbladder is contracted. No biliary tree dilat ation. Symmetric renal function is seen with no hydronephrosis or suspicious renal mass. No pyelonephritis o r acute parenchymal process. No bladder abnormalities. No adrenal abnormalities. No dilated bowel loops or bowel wall thickening. No findings for appendicitis or other acute GI proce ss. No free air, free fluid or inflammatory stranding. No hernia, mass or bulky lymphadenopathy. No suspicious bony findings. IMPRESSION: Contrast enhanced CT abdomen and pelvis showing no significant or suspicious finding. N o significant change from comparison.
[2018-11-08 13:33] LABS: Barbiturates NEGATIVE (NEGATIVE); Benzodiazepines NEGATIVE (NEGATIVE); Cocaine NEGATIVE (NEGATIVE); METHAMPHETAM POSITIVE (NEGATIVE); Methadone NEGATIVE (NEGATIVE); Opiates NEGATIVE (NEGATIVE); Phencyclidine NEGATIVE (NEGATIVE); THC Cannibis NEGATIVE (NEGATIVE)
[2018-11-08 14:20] VITALS: BP 124/54; O2SAT 96
[2018-11-08 14:32] LABS: Urine Blood NEGATIVE (NEG); Urine Glucose NEGATIVE (NEG); Urine Protein NEGATIVE (NEG)
--- NOTE | 2018-11-09 07:06 | EKG ---
Test Date: 2018-11-08 Test Time: 09:46:26 Television Picture Tube Rebuilder: CHELSY MEASUREMENT RESULTS: Intervals: Rate: 78 WY: 146 QRSD: 88 QT: 366 QTc: 417 [place]: P: 66 WY: 146 QRS: 59 T: 15 INTERPRETIVE STATEMENTS: Normal sinus rhythm Possible Left atrial enlargement Borderline ECG Compared to ECG 05/01/2018 22:44:37 No significant changes Electronically Signed On 11-09-18 07:04:29 MICROSTRATEGY ARCHITECT by Geo Bragg
== END 2018-11-08 14:13 | disposition home or self-care (01) ==
LOC: ER 09:21
DX: R11.2 Nausea with vomiting, unspecified (principal); R19.7 Diarrhea, unspecified; Z72.0 Tobacco use
CPT/HCPCS: 36415; 71045; 74177; 80048; 80076; 80307; 81003; 83690; 83735; 84100; 84484; 85025; 93005; 96361; 96374; 96375; 99285; C9113; J3010; J7030; Q9967

== ENCOUNTER 2019-04-27 13:10 | Emergency (ER) | payer SELFPAY ==
--- NOTE | 2019-04-27 14:51 | RAD REPORT ---
EXAM DESCRIPTION: CT - Head C Spine Cap Wo Con - 04/27/2019 2:30 pm TECHNIQUE: Computed axial tomography of the head and cervical spine was obtained. Coronal and sagitt al reconstruction was performed Computed axial tomography of the chest, abdomen and pelvis was obtained. Contrast was not requested. All CT scans are performed using dose optimization technique as appropriate and may include automated exposure control or mA/KV adjustment according to patient size. CLINICAL HISTORY: Head and neck injury with chest and abdominal pain status post fall COMPARISON: CT April 2018 FINDINGS: An intracranial bleed is not seen. The ventricles are normal in caliber. An extra-axial fluid collection is not noted. . Fluid within the sinuses/mastoids is not seen. A cervical fracture is not seen. No dislocation is noted. The evaluation of mediastinum, wil, vessels, solid organs and bowel are limited secondary to the lac k of contrast administration. A mediastinal hematoma is not noted. A pleural effusion is not seen. A lung contusion is not present. The liver,spleen, pancreas, adrenals,kidneys and bladder appear grossly normal. IMPRESSION: 1. No acute intracranial abnormality is seen. 2. A cervical fracture is not visualized. If the patient continues have symptoms to suggest intracran ial/spinal cord pathology MRI be recommended 3. No traumatic abnormality involving the chest/abdomen/pelvis.
[2019-04-27 15:03] LABS: Absolute Lymphocytes (CBC) 0.8 K/uL (0.7-4.9); Absolute Monocytes 0.7 K/uL (0.1-1.3); Absolute Neutrophil 8.4 K/uL (1.8-8.0); Basophils % 0.2 % (0-1.3); Eosinophils % 0.3 % (0-4.4); Hematocrit 39.9 % (39.6-49.0); Lymphocytes % 8.5 % (15.3-44.8); MPV 8.5 fL (7.6-11.3); Monocytes % 6.9 % (3.3-12.3); RBC Red Blood Cell Count 4.44 M/uL (4.33-5.43)
[2019-04-27 15:17] LABS: Potassium 3.6 mmol/L (3.5-5.1)
--- NOTE | 2019-04-27 16:27 | ER ---
Nurse's Notes [facility] Name: Anil Prasad Age: 38 yrs Sex: Male : 1980 Arrival Date: 04/27/2019 Time: 13:14 Bed 3 Private MD: None, None Diagnosis: Fall (on)(from) incline;Low back pain Presentation: 04/27 13:53 Presenting complaint: Patient states: i was working on a car and it was lifted, i fell tw2 off the car about 5 or 6 feet onto my back and shoulders, last night it didn't hurt as bad as it does now. Presenting complaint: Patient states: i hit my head as well. Transition of care: patient was not received from another setting of care. Onset of symptoms was April 27, 2019. Risk Assessment: Do you want to hurt yourself or someone else? Patient reports no desire to harm self or others. Initial Sepsis Screen: Does the patient meet any 2 criteria? No. Patient's initial sepsis screen is negative. Does the patient have a suspected source of infection? No. Patient's initial sepsis screen is negative. Care prior to arrival: None. 13:53 Method Of Arrival: Wheelchair tw2 13:53 Acuity: BERTRAND 3 tw2 14:11 Mechanism of Injury: Fall raised vehicle approximately 6 feet. Trauma event details: ph Injury occurred in the [facility], Injury occurred: at home. Injury occurred: April 27, 2019. Triage Assessment: 13:56 General: Appears uncomfortable, Behavior is crying. Pain: Complains of pain in head and tw2 back. Trauma Activation: Not Applicable Physician: ED Physician; Name: ; Notified At: ; Arrived At: Physician: General Surgeon; Name: ; Notified At: ; Arrived At: Physician: Radiology; Name: ; Notified At: ; Arrived At: Physician: Respiratory; Name: ; Notified At: ; Arrived At: Physician: Lab; Name: ; Notified At: ; Arrived At: Historical: - Allergies: 13:57 No Known Drug Allergies; tw2 - Home Meds: 13:57 None [Active]; tw2 - PMHx: 13:57 Asthma; tw2 - PSHx: 13:57 Appendectomy; tw2 - Immunization history:: Adult Immunizations. - Social history:: Smoking status: . - Immunization history: Last tetanus immunization: unknown. - Ebola Screening: : Patient denies travel to an Ebola-affected area in the 21 days before illness onset. Screenin:08 Abuse screen: Denies threats or abuse. Denies injuries from another. Nutritional ph screening: No deficits noted. Tuberculosis screening: No symptoms or risk factors identified. Fall Risk None identified. Primary Survey: 14:05 NO uncontrolled hemorrhage observed. A: The patient is alert. Airway: patent, No ph supplemental oxygen in use on arrival. Oral cavity: clear, Trachea midline. Breathing/Chest: Respiratory pattern: regular, Respiratory effort: spontaneous, unlabored, Breath sounds: clear, bilaterally. Chest inspection: symmetrical rise and fall of the chest. Circulation: Skin color: pink, Skin temperature: warm, dry. Disability Alert. Exposure/Environment: There is no evidence of uncontrolled external bleeding. No obvious injuries are noted at this time. 17:27 Reassessment Breathing/Chest Respiratory pattern Regular Respiratory effort Spontaneous ph Unlabored Breath sounds Clear Chest inspection Symmetrical. Secondary Survey: 14:07 HEENT: No deficits noted. Gastrointestinal: No deficits noted. Patient reports Nausea. ph Musculoskeletal: Circulation, motion, and sensation intact. Range of motion: intact in all extremities, Reports numbness in right arm and left arm pain in right trapezius and left trapezius and lumbar area and thoracic area and posterior cervical area. Assessment: 14:03 General: Appears in no apparent distress. uncomfortable, well groomed, Behavior is ph cooperative, anxious, crying, restless. Pain: Complains of pain in left trapezius, right trapezius, thoracic area and lumbar area. Neuro: Level of Consciousness is awake, alert, obeys commands, Oriented to person, place, time, situation, Reports dizziness. Cardiovascular: Capillary refill < 3 seconds in bilateral fingers Patient's skin is warm and dry. Respiratory: Airway is patent Respiratory effort is even, unlabored. GI: Reports nausea, Patient currently denies abdominal pain, vomiting. Derm: Skin is intact, is healthy with good turgor, Skin is pink, warm \T\ dry. Musculoskeletal: Circulation, motion, and sensation intact. Range of motion: intact in all extremities. 15:00 Reassessment: Patient appears in no apparent distress at this time. Patient and/or ph family updated on plan of care and expected duration. Pain level reassessed. Patient is alert, oriented x 3, equal unlabored respirations, skin warm/dry/pink. Awaiting CT results, VSS. 16:35 Reassessment: Patient appears in no apparent distress at this time. Patient and/or ph family updated on plan of care and expected duration. Pain level reassessed. Patient is alert, oriented x 3, equal unlabored respirations, skin warm/dry/pink. Pt resting quietly w/ eyes closed, awakens easily, provided with urinal to obtain urine sample. 17:24 Reassessment: Patient appears in no apparent distress at this time. Patient and/or ph family updated on plan of care and expected duration. Pain level reassessed. Patient is alert, oriented x 3, equal unlabored respirations, skin warm/dry/pink. Pt d/c home. Vital Signs: 13:56 BP 117 / 56; Pulse 102; Resp 18; Temp 98.3(O); Pulse Ox 98% on R/A; Weight 83.91 kg tw2 (R); Height 5 ft. 8 in. (172.72 cm); Pain 10/10; 15:12 BP 123 / 67; Pulse 89; Resp 15; Temp 97.6(O); Pulse Ox 100% on R/A; mh5 16:36 BP 120 / 70; Pulse 87; Resp 20; Pulse Ox 99% on R/A; ph 16:40 BP 120 / 70; Pulse 82; Resp 18; Temp 97.6(TE); Pulse Ox 99% on R/A; mh5 13:56 Body Mass Index 28.13 (83.91 kg, 172.72 cm) tw2 Dagmar Coma Score: 14:10 Eye Response: spontaneous(4). Verbal Response: oriented(5). Motor Response: obeys ph commands(6). Total: 15. 16:36 Eye Response: spontaneous(4). Verbal Response: oriented(5). Motor Response: obeys ph commands(6). Total: 15. Trauma Score (Adult): 14:10 Eye Response: spontaneous(1); Verbal Response: oriented(1); Motor Response: obeys ph commands(2); Systolic BP: > 89 mm Hg(4); Respiratory Rate: 10 to 29 per min(4); [place] Score: 15; Trauma Score: 12 16:36 Eye Response: spontaneous(1); Verbal Response: oriented(1); Motor Response: obeys ph commands(2); Systolic BP: > 89 mm Hg(4); Respiratory Rate: 10 to 29 per min(4); [place] Score: 15; Trauma Score: 12 ED Course: 13:14 Patient arrived in ED. dl4 13:15 None, None is Private Physician. dl4 13:56 Triage completed. tw2 13:56 Arm band placed on. tw2 14:04 Rikki Mathew MD is Attending Physician. ps1 14:06 Angelica Walker, ARAM is Primary Nurse. ph 14:11 Patient has correct armband on for positive identification. Bed in low position. Call ph light in reach. Side rails up X 1. Pulse ox on. NIBP on. Door closed. Noise minimized. Warm blanket given. Verbal reassurance given. Head of bed lowered. 14:11 Patient maintains SpO2 saturation greater than 95% on room air. Thermoregulation: warm ph blanket given to patient. 14:31 CT Traumagram (Head C Spine CAP wo con) In Process Unspecified. EDMS 14:45 Initial lab(s) drawn, by ri, sent to lab. T\T\S collected, blood band applied to patient. mh5 Inserted saline lock: 20 gauge in right antecubital area, using aseptic technique. Blood collected. 16:37 No provider procedures requiring assistance completed. ph 17:29 IV discontinued, intact, bleeding controlled, No redness/swelling at site. Pressure ph dressing applied. Administered Medications: 17:15 Drug: [place] 10 mg-325 mg 1 tabs Route: PO; ph 17:24 Follow up: Response: No adverse reaction; Medication administered at discharge. ph Intake: 14:10 PO: 0ml; Total: 0ml. ph Output: 14:10 Urine: 0ml; Total: 0ml. ph Outcome: 16:26 Discharge ordered by . ps1 17:27 Discharged to home via wheelchair. ph 17:27 Condition: good 17:27 Discharge instructions given to patient, Instructed on discharge instructions, follow up and referral plans. medication usage, Demonstrated understanding of instructions, follow-up care, medications, Prescriptions given X 3. 17:31 Patient left the ED. iw 17:31 Patient's length of stay was not longer than 2 hours. ph Signatures: Dispatcher [employer] EDCO Marv, Prudence, ARAM RN Angelica Chen RN RN Dina Wellington RN RN 2 Pat Stoddard [facility] Rikki Mathew MD MD [facility] Bharath Velazquez 4
--- NOTE | 2019-04-27 16:28 | EDPHYS ---
Physician Documentation [facility] Name: Anil Prasad Age: 38 yrs Sex: Male : 1980 Arrival Date: 04/27/2019 Time: 13:14 Bed 3 Private MD: None, None ED Physician Rikki Mathew HPI: 04/27 16:27 This 38 yrs old Other Male presents to ER via Wheelchair with complaints of Fall Injury.ps1 16:27 patient states he was working on a vehicle and slipped on some oil while replacing a ps1 transmission and fell appx 5 feet in the air on to his back. He states that his lower back and mid thoracic area. NO LOC. Pain rated as severe. No saddle anesthesia, LOC, LOF, urine symptoms. . Historical: - Allergies: 13:57 No Known Drug Allergies; tw2 - Home Meds: 13:57 None [Active]; tw2 - PMHx: 13:57 Asthma; tw2 - PSHx: 13:57 Appendectomy; tw2 - Immunization history:: Adult Immunizations. - Social history:: Smoking status: . - Immunization history: Last tetanus immunization: unknown. - Ebola Screening: : Patient denies travel to an Ebola-affected area in the 21 days before illness onset. ROS: 16:27 Constitutional: Negative for fever, chills, and weight loss, Eyes: Negative for injury, ps1 pain, redness, and discharge, Cardiovascular: Negative for chest pain, palpitations, and edema, Respiratory: Negative for shortness of breath, cough, wheezing, and pleuritic chest pain, Abdomen/GI: Negative for abdominal pain, nausea, vomiting, diarrhea, and constipation, MS/Extremity: Negative for injury and deformity, Skin: Negative for injury, rash, and discoloration, Neuro: Negative for headache, weakness, numbness, tingling, and seizure. 16:27 Back: Positive for injury or acute deformity, pain at rest, pain with movement. Exam: 16:27 Constitutional: This is a well developed, well nourished patient who is awake, alert, ps1 and in no acute distress. Head/Face: Normocephalic, atraumatic. Eyes: Pupils equal round and reactive to light, extra-ocular motions intact. Lids and lashes normal. Conjunctiva and sclera are non-icteric and not injected. ENT: Nares patent. No nasal discharge, no septal abnormalities noted. Tympanic membranes are normal and external auditory canals are clear. Oropharynx with no redness, swelling, or masses, exudates, or evidence of obstruction, uvula midline. Mucous membranes moist. Neck: Trachea midline, no thyromegaly or masses palpated, and no cervical lymphadenopathy. Supple, full range of motion without nuchal rigidity, or vertebral point tenderness. No Meningismus. Chest/axilla: Normal chest wall appearance and motion. Nontender with no deformity. No lesions are appreciated. Cardiovascular: Regular rate and rhythm. No gallops, murmurs, or rubs. Normal PMI, no JVD. No pulse deficits. Respiratory: Lungs have equal breath sounds bilaterally, clear to auscultation and percussion. No rales, rhonchi or wheezes noted. No increased work of breathing, no retractions or nasal flaring. Abdomen/GI: Soft, non-tender, with normal bowel sounds. No distension or tympany. No guarding or rebound. No evidence of tenderness throughout. Skin: Warm, dry with normal turgor. Normal color with no rashes, no lesions, and no evidence of cellulitis. MS/ Extremity: Pulses equal, no cyanosis. Neurovascular intact. Full, normal range of motion. 16:27 Back: pain, that is moderate, ROM is normal, normal spinal alignment noted, muscle spasm, is appreciated in the right scapular area, right subscapular area, left low back, left mid back, right mid back and right low back. Vital Signs: 13:56 BP 117 / 56; Pulse 102; Resp 18; Temp 98.3(O); Pulse Ox 98% on R/A; Weight 83.91 kg tw2 (R); Height 5 ft. 8 in. (172.72 cm); Pain 10/10; 15:12 BP 123 / 67; Pulse 89; Resp 15; Temp 97.6(O); Pulse Ox 100% on R/A; mh5 16:36 BP 120 / 70; Pulse 87; Resp 20; Pulse Ox 99% on R/A; ph 16:40 BP 120 / 70; Pulse 82; Resp 18; Temp 97.6(TE); Pulse Ox 99% on R/A; mh5 13:56 Body Mass Index 28.13 (83.91 kg, 172.72 cm) tw2 Dagmar Coma Score: 14:10 Eye Response: spontaneous(4). Verbal Response: oriented(5). Motor Response: obeys ph commands(6). Total: 15. 16:36 Eye Response: spontaneous(4). Verbal Response: oriented(5). Motor Response: obeys ph commands(6). Total: 15. Trauma Score (Adult): 14:10 Eye Response: spontaneous(1); Verbal Response: oriented(1); Motor Response: obeys ph commands(2); Systolic BP: > 89 mm Hg(4); Respiratory Rate: 10 to 29 per min(4); [place] Score: 15; Trauma Score: 12 16:36 Eye Response: spontaneous(1); Verbal Response: oriented(1); Motor Response: obeys ph commands(2); Systolic BP: > 89 mm Hg(4); Respiratory Rate: 10 to 29 per min(4); [place] Score: 15; Trauma Score: 12 MDM: 14:18 Patient medically screened. ps1 16:27 Data reviewed: vital signs, nurses notes, lab test result(s), radiologic studies, CT ps1 scan, and as a result, I will discharge patient. Counseling: I had a detailed discussion with the patient and/or guardian regarding: the historical points, exam findings, and any diagnostic results supporting the discharge/admit diagnosis, lab results, radiology results, the need for outpatient follow up. 04/27 14:08 Order name: Basic Metabolic Panel; Complete Time: 15:41 ps1 04/27 14:08 Order name: CBC with Diff; Complete Time: 15:41 ps1 04/27 14:08 Order name: CT Traumagram (Head C Spine CAP wo con); Complete Time: 14:58 ps1 04/27 14:08 Order name: Creatinine for Radiology; Complete Time: 15:41 ps1 04/27 14:08 Order name: Type And Screen; Complete Time: 16:25 ps1 04/27 17:02 Order name: Urine Dipstick--Ancillary (enter results) bd 04/27 14:08 Order name: Labs collected and sent; Complete Time: 14:52 ps1 Administered Medications: 17:15 Drug: [place] 10 mg-325 mg 1 tabs Route: PO; ph 17:24 Follow up: Response: No adverse reaction; Medication administered at discharge. ph Disposition: 04/27/19 16:26 Discharged to Home. Impression: Fall (on)(from) incline, Low back pain. - Condition is Stable. - Discharge Instructions: Back Pain, Adult, Musculoskeletal Pain. - Prescriptions for Anaprox DS 550 mg Oral Tablet - take 1 tablet by ORAL route every 12 hours As needed; 20 tablet. Robaxin 500 mg Oral Tablet - take 2 tablet by ORAL route every 6 hours As needed; 40 tablet. Medrol (Roderick) 4 mg Oral Tablets, Dose Pack - take 1 tablet by ORAL route as directed - follow package instructions; 1 packet. - Work release form, Medication Reconciliation Form, Thank You Letter, Antibiotic Education, Prescription Opioid Use form. - Follow up: Private Physician; When: As needed; Reason: Further diagnostic work-up, Recheck today's complaints, Continuance of care, Re-evaluation by your physician. Follow up: Emergency Department; When: As needed; Reason: Worsening of condition. - Problem is new. - Symptoms have improved. Signatures: Dispatcher [employer] EDPrudence Barker RN RN Angelica Walker RN RN Dina Wellington, RN RN tw2 Rikki Mathew MD MD ps1 Corrections: (The following items were deleted from the chart) 17:31 16:26 04/27/2019 16:26 Discharged to Home. Impression: Fall (on)(from) incline; Low iw back pain. Condition is Stable. Forms are Medication Reconciliation Form, Thank You Letter, Antibiotic Education, Prescription Opioid Use. Follow up: Private Physician; When: As needed; Reason: Further diagnostic work-up, Recheck today's complaints, Continuance of care, Re-evaluation by your physician. Follow up: Emergency Department; When: As needed; Reason: Worsening of condition. Problem is new. Symptoms have improved. ps1
[2019-04-27] MEDS ORDERED: HYDROCODONE/APAP 10/325 TAB ONE (17:28)
[2019-04-27 17:42] LABS: Urine Blood NEGATIVE (NEG); Urine Glucose NEGATIVE (NEG); Urine Protein TRACE (NEG)
[2019-04-27 18:17] VITALS: TEMP 97.6
[2019-04-27 18:18] VITALS: BP 120/70; O2SAT 99
== END 2019-04-27 17:31 | disposition home or self-care (01) ==
LOC: ER 13:10
DX: M54.5 Low back pain (principal); W01.0XXA Fall on same level from slipping, tripping and stumbling without subsequent striking against object, initial encounter; Y93.89 Activity, other specified; Y92.89 Other specified places as the place of occurrence of the external cause; Y99.8 Other external cause status
CPT/HCPCS: 36415; 70450; 71250; 72125; 80048; 81003; 85025; 86850; 86900; 86901; 99284

== ENCOUNTER 2019-05-03 15:44 | Emergency (ER) | payer SELFPAY ==
--- NOTE | 2019-05-03 16:11 | RAD REPORT ---
EXAM DESCRIPTION: Guilherme Single View05/03/2019 4:06 pm CLINICAL HISTORY: Chest pain COMPARISON: October 2018 FINDINGS: The lungs appear clear of acute infiltrate. The heart is normal size IMPRESSION: No acute abnormalities displayed
[2019-05-03 16:13] LABS: Absolute Lymphocytes (CBC) 2.1 K/uL (0.7-4.9); Absolute Monocytes 0.5 K/uL (0.1-1.3); Absolute Neutrophil 4.1 K/uL (1.8-8.0); Basophils % 0.3 % (0-1.3); Eosinophils % 1.3 % (0-4.4); Hematocrit 37.9 % (39.6-49.0); Lymphocytes % 30.7 % (15.3-44.8); MPV 8.2 fL (7.6-11.3); Monocytes % 7.1 % (3.3-12.3)
[2019-05-03 16:17] LABS: Protime INR 0.96
--- NOTE | 2019-05-03 16:17 | RAD REPORT ---
EXAM DESCRIPTION: CT - Head Brain Wo Cont - 05/03/2019 4:04 pm CLINICAL HISTORY: Alteration of awareness/confusion COMPARISON: 2015 TECHNIQUE: Computed axial tomography of the head was obtained. IV contrast was not requested. All CT scans are performed using dose optimization technique as appropriate and may include automated exposure control or mA/KV adjustment according to patient size. FINDINGS: An intracranial bleed is not seen . The ventricles are normal in caliber. No extra-axial fluid collection is noted. Fluid within the sinuses/ mastoids is not seen. IMPRESSION: No acute intracranial abnormality is seen. If patient's symptoms persist MRI of the bra in would be recommended.
[2019-05-03 16:30] LABS: ALT/SGPT 26 U/L (12-78); AST/SGOT 25 U/L (15-37); Albumin 3.1 g/dL (3.4-5.0); Alkaline Phosphatase 83 U/L (45-117); BUN Blood Urea Nitrogen 17 mg/dL (7-18); Bicarbonate 28 mmol/L (21-32); Bilirubin Direct 0.1 mg/dL (0-0.2); Bilirubin Total 0.3 mg/dL (0.2-1.0); Glucose Level 138 mg/dL (74-106); Magnesium 2.3 mg/dL (1.8-2.4); NT PRO-BNP 45 pg/mL (<125); Protein, Total 6.2 g/dL (6.4-8.2); Sodium Level 143 mmol/L (136-145); Troponin (Emerg Dept Use Only) < 0.02 ng/mL (0.0-0.045)
[2019-05-03] MEDS ORDERED: NA CHLORIDE 0.9% 1,000 ML ONE ×2 (16:42→17:28)
--- NOTE | 2019-05-03 17:10 | EDPHYS ---
Physician Documentation [facility] Name: Anil Prasad Age: 38 yrs Sex: Male : 1980 Arrival Date: 05/03/2019 Time: 15:42 Bed 7 Private MD: ED Physician Lukas Vazquez HPI: 05/03 17:06 This 38 yrs old Other Male presents to ER via EMS with complaints of Unresponsive. jb 17:06 The patient presents with decreased mental status. Onset: The symptoms/episode jb began/occurred just prior to arrival. Possible causes: unknown, heat exhaustion. Associated signs and symptoms: The patient has no apparent associated signs or symptoms. Patient's baseline: Neuro: alert and fully oriented. The patient has not experienced similar symptoms in the past. Historical: - Allergies: 15:51 No Known Allergies; sg - PMHx: 15:51 Asthma; sg - PSHx: 15:51 Appendectomy; sg - Immunization history:: Adult Immunizations up to date. - Social history:: Smoking status: Patient/guardian denies using tobacco. - Ebola Screening: : Patient negative for fever greater than or equal to 101.5 degrees Fahrenheit, and additional compatible Ebola Virus Disease symptoms Patient denies exposure to infectious person Patient denies travel to an Ebola-affected area in the 21 days before illness onset No symptoms or risks identified at this time. ROS: 17:07 Constitutional: Negative for fever, chills, and weight loss, Eyes: Negative for injury, jb pain, redness, and discharge, ENT: Negative for injury, pain, and discharge, Neck: Negative for injury, pain, and swelling, Cardiovascular: Negative for chest pain, palpitations, and edema, Respiratory: Negative for shortness of breath, cough, wheezing, and pleuritic chest pain, Abdomen/GI: Negative for abdominal pain, nausea, vomiting, diarrhea, and constipation, Back: Negative for injury and pain, : Negative for injury, bleeding, discharge, and swelling, MS/Extremity: Negative for injury and deformity, Skin: Negative for injury, rash, and discoloration, Psych: Negative for depression, anxiety, suicide ideation, homicidal ideation, and hallucinations, Allergy/Immunology: Negative for hives, rash, and allergies, Endocrine: Negative for neck swelling, polydipsia, polyuria, polyphagia, and marked weight changes, Hematologic/Lymphatic: Negative for swollen nodes, abnormal bleeding, and unusual bruising. 17:07 Neuro: Positive for near syncope, weakness. Exam: 17:07 Constitutional: This is a well developed, well nourished patient who is awake, alert, jb and in no acute distress. Head/Face: Normocephalic, atraumatic. Eyes: Pupils equal round and reactive to light, extra-ocular motions intact. Lids and lashes normal. Conjunctiva and sclera are non-icteric and not injected. Cornea within normal limits. Periorbital areas with no swelling, redness, or edema. ENT: Nares patent. No nasal discharge, no septal abnormalities noted. Tympanic membranes are normal and external auditory canals are clear. Oropharynx with no redness, swelling, or masses, exudates, or evidence of obstruction, uvula midline. Mucous membranes moist. Neck: Trachea midline, no thyromegaly or masses palpated, and no cervical lymphadenopathy. Supple, full range of motion without nuchal rigidity, or vertebral point tenderness. No Meningismus. Chest/axilla: Normal chest wall appearance and motion. Nontender with no deformity. No lesions are appreciated. Cardiovascular: Regular rate and rhythm with a normal S1 and S2. No gallops, murmurs, or rubs. Normal PMI, no JVD. No pulse deficits. Respiratory: Lungs have equal breath sounds bilaterally, clear to auscultation and percussion. No rales, rhonchi or wheezes noted. No increased work of breathing, no retractions or nasal flaring. Abdomen/GI: Soft, non-tender, with normal bowel sounds. No distension or tympany. No guarding or rebound. No evidence of tenderness throughout. Back: No spinal tenderness. No costovertebral tenderness. Full range of motion. Male : Normal genitalia with no discharge or lesions. Skin: Warm, dry with normal turgor. Normal color with no rashes, no lesions, and no evidence of cellulitis. MS/ Extremity: Pulses equal, no cyanosis. Neurovascular intact. Full, normal range of motion. Neuro: Awake and alert, GCS 15, oriented to person, place, time, and situation. Cranial nerves II-XII grossly intact. Motor strength 5/5 in all extremities. Sensory grossly intact. Cerebellar exam normal. Normal gait. Psych: Awake, alert, with orientation to person, place and time. Behavior, mood, and affect are within normal limits. Vital Signs: 15:50 BP 143 / 86; Pulse 95; Resp 17 S; Temp 98.9; Pulse Ox 100% on R/A; sg 17:08 BP 150 / 85; Pulse 82; Resp 16; Pulse Ox 99% on R/A; sg 18:52 BP 148 / 80; Pulse 78; Resp 16; Pulse Ox 99% on R/A; tr5 MDM: 15:46 Patient medically screened. [facility] 17:11 Data reviewed: vital signs, nurses notes, lab test result(s), EKG, radiologic studies, [facility] CT scan, plain films. 05/03 15:43 Order name: Basic Metabolic Panel 05/03 15:43 Order name: CBC with Diff 05/03 15:43 Order name: LFT's; Complete Time: 17: 05/03 15:43 Order name: Magnesium; Complete Time: 17: 05/03 15:43 Order name: NT PRO-BNP; Complete Time: 17: 05/03 15:43 Order name: PT-INR; Complete Time: 17: 05/03 15:43 Order name: Troponin (emerg Dept Use Only); Complete Time: 17: 05/03 15:43 Order name: Acetaminophen; Complete Time: 17: 05/03 15:43 Order name: ETOH Level; Complete Time: 17: 05/03 15:43 Order name: Ptt, Activated; Complete Time: 17: 05/03 15:43 Order name: Salicylate; Complete Time: 17: 05/03 15:48 Order name: Basic Metabolic Panel; Complete Time: 17: [facility] 05/03 15:48 Order name: CBC with Automated Diff; Complete Time: 17: [facility] 05/03 15:43 Order name: XRAY Chest (1 view); Complete Time: 17: 05/03 15:43 Order name: EKG; Complete Time: 15:48 05/03 15:43 Order name: Cardiac monitoring; Complete Time: 15:54 05/03 15:43 Order name: EKG - Nurse/Tech; Complete Time: 15:54 05/03 15:43 Order name: IV Saline Lock; Complete Time: 15:54 05/03 15:43 Order name: Labs collected and sent; Complete Time: 15:54 05/03 15:43 Order name: O2 Per Protocol; Complete Time: 15:54 05/03 15:43 Order name: O2 Sat Monitoring; Complete Time: 15:54 05/03 15:49 Order name: CT Head Brain wo Cont; Complete Time: 17:10 jb 05/03 17:11 Order name: PO challenge; Complete Time: 18:16 [facility] Administered Medications: 16:15 Drug: NS 0.9% 1000 ml Route: IV; Rate: 1 bolus; Site: right antecubital; sg 18:54 Follow up: IV Status: Completed infusion tr5 17:13 Drug: NS 0.9% 1000 ml Route: IV; Rate: 1 bolus; Site: right antecubital; sg 18:53 Follow up: IV Status: Completed infusion tr5 Disposition: 05/03/19 17:10 Discharged to Home. Impression: Heat exhaustion, unspecified, Weakness. - Condition is Stable. - Discharge Instructions: Near-Syncope, Weakness, Near-Syncope, [id number], Heat Exhaustion Information, Weakness, [id number]. - Medication Reconciliation Form, Thank You Letter, Antibiotic Education, Prescription Opioid Use form. - Follow up: Private Physician; When: 2 - 3 days; Reason: Recheck today's complaints, Continuance of care, Re-evaluation by your physician. - Problem is new. - Symptoms have improved. Signatures: Dispatcher [employer] EDStewart Jeffers RN RN Zeinab Peralta RN RN aa1 Lukas Vazquez MD MD cha Williams, Irene, RN RN Farzad Adorno RN tr5 Corrections: (The following items were deleted from the chart) 19:12 15:45 Urine Dipstick-Ancillary ordered. [facility] 19:14 17:10 05/03/2019 17:10 Discharged to Home. Impression: Heat exhaustion, unspecified; aa1 Weakness. Condition is Stable. Forms are Medication Reconciliation Form, Thank You Letter, Antibiotic Education, Prescription Opioid Use. Follow up: Private Physician; When: 2 - 3 days; Reason: Recheck today's complaints, Continuance of care, Re-evaluation by your physician. Problem is new. Symptoms have improved. [facility]
--- NOTE | 2019-05-03 17:10 | ER ---
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 reports pain to the back of head described as burning, has body aches as well. Transition of care: patient was not received from another setting of care. Onset of symptoms was May 03, 2019. Risk Assessment: Do you want to hurt yourself or someone else? Patient reports no desire to harm self or others. Initial Sepsis Screen: Does the patient meet any 2 criteria? No. Patient's initial sepsis screen is negative. Does the patient have a suspected source of infection? No. Patient's initial sepsis screen is negative. Care prior to arrival: None. 15:46 Method Of Arrival: EMS: [facility] 15:46 Acuity: BERTRAND 3 sg Historical: - Allergies: 15:51 No Known Allergies; sg - PMHx: 15:51 Asthma; sg - PSHx: 15:51 Appendectomy; sg - Immunization history:: Adult Immunizations up to date. - Social history:: Smoking status: Patient/guardian denies using tobacco. - Ebola Screening: : Patient negative for fever greater than or equal to 101.5 degrees Fahrenheit, and additional compatible Ebola Virus Disease symptoms Patient denies exposure to infectious person Patient denies travel to an Ebola-affected area in the 21 days before illness onset No symptoms or risks identified at this time. Screenin:10 Abuse screen: Denies threats or abuse. Denies injuries from another. Nutritional sg screening: No deficits noted. Tuberculosis screening: No symptoms or risk factors identified. Never had TB. Fall Risk None identified. Assessment: 16:20 General: Appears in no apparent distress. uncomfortable, well groomed, well developed, sg well nourished, Behavior is cooperative, drowsy, quiet. Pain: Complains of pain in scalp Quality of pain is described as tender, burning. 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 Full function Speech is normal. Cardiovascular: Heart tones S1 S2 present Patient's skin is warm and dry. Chest pain is denied. Respiratory: Airway is patent Respiratory effort is even, unlabored, Respiratory pattern is regular, symmetrical. GI: Abdomen is round non-distended. : No signs and/or symptoms were reported regarding the genitourinary system. EENT: No signs and/or symptoms were reported regarding the EENT system. Derm: Skin is intact, is healthy with good turgor, Skin is moist, Skin is normal, Skin temperature is hot. Musculoskeletal: Circulation, motion, and sensation intact. Range of motion: intact in all extremities, Swelling absent. 17:20 Reassessment: Patient appears in no apparent distress at this time. Patient and/or sg family updated on plan of care and expected duration. Pain level reassessed. 18:20 Reassessment: Patient appears in no apparent distress at this time. Patient and/or sg family updated on plan of care and expected duration. Pain level reassessed. pt remains very drowsy at this time, tolerating water and crackers, pt to be discharged to home as ordered Patient states symptoms have not improved. 19:13 Reassessment: Patient appears in no apparent distress at this time. Patient is alert, aa1 oriented x 3, equal unlabored respirations, skin warm/dry/pink. Discussed d/c \T\ f/u instructions to pt; denies questions or concerns at this time Patient states feeling better. Vital Signs: 15:50 BP 143 / 86; Pulse 95; Resp 17 S; Temp 98.9; Pulse Ox 100% on R/A; sg 17:08 BP 150 / 85; Pulse 82; Resp 16; Pulse Ox 99% on R/A; sg 18:52 BP 148 / 80; Pulse 78; Resp 16; Pulse Ox 99% on R/A; tr5 ED Course: 15:42 Patient arrived in ED. iw 15:46 Lukas Vazquez MD is Attending Physician. jb 15:50 Triage completed. sg 15:50 Arm band placed on. sg 15:52 Stewart Diaz, ARAM is Primary Nurse. sg 15:55 Patient has correct armband on for positive identification. Bed in low position. Call sg light in reach. Side rails up X2. electronic device monitor on. Pulse ox on. NIBP on. Warm blanket given. Head of bed elevated. 15:58 EKG done, by quality assurance qa lab technician. reviewed by Lukas Vazquez MD. 3 16:04 CT Head Brain wo Cont In Process Unspecified. EDMS 16:06 XRAY Chest (1 view) In Process Unspecified. EDMS 18:40 Diet: Patient given snack. Patient given water. Tolerated well. sg 19:13 No provider procedures requiring assistance completed. IV discontinued, intact, aa1 bleeding controlled, No redness/swelling at site. Pressure dressing applied. Administered Medications: 16:15 Drug: NS 0.9% 1000 ml Route: IV; Rate: 1 bolus; Site: right antecubital; sg 18:54 Follow up: IV Status: Completed infusion tr5 17:13 Drug: NS 0.9% 1000 ml Route: IV; Rate: 1 bolus; Site: right antecubital; sg 18:53 Follow up: IV Status: Completed infusion tr5 Outcome: 17:10 Discharge ordered by . jb 19:13 Discharged to home via wheelchair. aa1 19:13 Condition: good 19:13 Discharge instructions given to patient, family, Instructed on discharge instructions, follow up and referral plans. Demonstrated understanding of instructions, follow-up care. 19:14 Patient left the ED. aa1 Signatures: Dispatcher [employer] Stewart Mohan RN RN Zeinab Peralta RN RN aa1 Lukas Vazquez MD MD cha Williams, Irene, RN RN iw Montes, Shakira 3 Farzad Adorno RN RN tr5
--- NOTE | 2019-05-03 17:18 | EKG ---
Test Date: 2019-05-03 Test Time: 15:48:40 Audio Production Engineer: JIMBO MEASUREMENT RESULTS: Intervals: Rate: 90 CT: 138 QRSD: 82 QT: 350 QTc: 428 [place]: P: 62 CT: 138 QRS: 61 T: 0 INTERPRETIVE STATEMENTS: Normal sinus rhythm Normal ECG Compared to ECG 11/08/2018 09:46:26 No significant changes Electronically Signed On 05-03-19 17:17:06 CDT by Geo Bragg
[2019-05-03 23:59] VITALS: TEMP 98.9
[2019-05-04 00:31] VITALS: O2SAT 99
[2019-05-04 00:33] VITALS: BP 148/80
== END 2019-05-03 19:14 | disposition home or self-care (01) ==
LOC: ER 15:44
DX: T67.5XXA Heat exhaustion, unspecified, initial encounter (principal); R53.1 Weakness; X58.XXXA Exposure to other specified factors, initial encounter
CPT/HCPCS: 36415; 70450; 71045; 80048; 80076; 80320; 80329; 83735; 83880; 84484; 85025; 85610; 85730; 93005; 96360; 96361; 99284; J7030

== ENCOUNTER 2019-08-07 16:29 | Emergency (ER) | payer SELFPAY ==
--- OUTSIDE RECORDS SUMMARY | 2019-08-07 16:32 | XMS REPORT | Summary of Care ---
:1980 Author Organization [facility] Address [address] [place] [id number] Care Team Providers Name Role Phone Pcp, Patient Does Not Have A Primary Care Provider Pcp, Patient Does Not Have A Unavailable Encounter Details Date Type Department Care Team Description 08/06/2019 Orders Only [facility] Doctor Unassigned, No [address] [facility] [place] [address] [address] [place] [address] Allergies No Known Allergiesdocumented as of this encounter (statuses as of 08/06/2019) Medications Medication Sig Dispensed Refills Start Date End Date Status sulindac (CLINORIL) 200 Take 1 tablet 20 tablet 0 09/12/2016 Active mg tablet by mouth 2 (two) times daily. cyclobenzaprine Take 1 tablet 30 tablet 0 09/12/2016 Active (FLEXERIL) 5 mg tablet by mouth 3 (three) times daily. guaiFENesin (MUCINEX) 600 Take 1 tablet 10 tablet 0 11/29/2016 Active mg tablet by mouth every 12 (twelve) hours. traMADol (ULTRAM) 50 mg Take 1 tablet 9 tablet 0 2019 Active tabletIndications: by mouth every Ganglion cyst of flexor 8 (eight) hours tendon sheath of finger as needed for of left hand Pain (scale 4-6). documented as of this encounter (statuses as of 08/06/2019) Active Problems No known active problemsdocumented as of this encounter (statuses as of 2018) Social History Tobacco Use Types Packs/Day Years Used Date Never Assessed Sex Assigned at Date Recorded Not on file Job Start Date Occupation Industry Not on file Not on file Not on file Travel History Travel Start Travel End No recent travel history available. documented as of this encounter Last Filed Vital Signs Not on filedocumented in this encounter Plan of Treatment Health Maintenance Due Date Last Done Comments VARICELLA VACCINES (1 of 2 - + 1995 2-dose series) DTaP,Tdap,and Td Vaccines (2001 Tdap) INFLUENZA VACCINE (Retired 07/25/2019 version) PNEUMOCOCCAL 0-64 YEARS COMBINED Aged Out No longer eligible based on SERIES patient's age to complete this topic documented as of this encounter Procedures Procedure Name Priority Date/Time Associated Diagnosis Comments CONSENT/REFUSAL FOR Routine 08/06/2019 2:53 AM CDT DIAGNOSIS AND TREATMENT documented in this encounter Results Not on filedocumented in this encounter
--- OUTSIDE RECORDS SUMMARY | 2019-08-07 16:32 | XMS REPORT ---
:1980 Author Organization [facility] Address [address] [place] [address] [address] [place] [address] Care Team Providers Name Role Phone Unavailable Unavailable Unavailable Problems This patient has no known problems. Allergies, Adverse Reactions, Alerts This patient has no known allergies or adverse reactions. Medications This patient has no known medications.
--- OUTSIDE RECORDS SUMMARY | 2019-08-07 16:32 | XMS REPORT | Summary of Care ---
:1980 Author Organization [facility] Address [address] [place] [id number] Care Team Providers Name Role Phone Pcp, Patient Does Not Have A Primary Care Provider Pcp, Patient Does Not Have A Unavailable Reason for Visit Reason Comments Tooth Pain Auth/Cert Status Reason Specialty Diagnoses / Referred By Referred To Procedures Contact Contact [facility] [address] [place] [address] [place] [address] Encounter Details Date Type Department Care Team Description 08/06/2019 Emergency [facility] Debra Antunez, Toothache (Primary Dx) Department [address] [place] [address] [address] [place] [address] [id number] [place], [place] [id number] Allergies No Known Allergiesdocumented as of this encounter (statuses as of 08/06/2019) Medications Medication Sig Dispensed Refills Start Date End Date Status sulindac (CLINORIL) Take 1 tablet 20 tablet 0 09/12/2016 Active 200 mg tablet by mouth 2 (two) times daily. guaiFENesin (MUCINEX) Take 1 tablet 10 tablet 0 11/29/2016 Active 600 mg tablet by mouth every 12 (twelve) hours. traMADol (ULTRAM) 50 Take 1 tablet 9 tablet 0 2019 Active mg tabletIndications: by mouth Ganglion cyst of every 8 flexor tendon sheath (eight) hours of finger of left as needed for hand Pain (scale 4-6). amoxicillin 500 mg Take 1 21 capsule 0 08/06/2019 Active capsuleIndications: capsule by Toothache mouth 3 (three) times daily. traMADol (ULTRAM) 50 Take 1 tablet 20 tablet 0 08/06/2019 Active mg tabletIndications: by mouth Toothache every 6 (six) hours as needed for Pain (scale 7-10). cyclobenzaprine Take 1 tablet 30 tablet 0 09/12/2016 Discontinued (FLEXERIL) 5 mg by mouth 3 9 tablet (three) times daily. documented as of this encounter (statuses as [...] of this encounter Last Filed Vital Signs Vital Sign Reading Time Taken Comments Blood Pressure 147/97 08/06/2019 3:00 AM CDT Pulse 84 08/06/2019 3:00 AM CDT Temperature 36.6 C (97.9 F) 08/06/2019 3:00 AM CDT Respiratory Rate 16 08/06/2019 3:00 AM CDT Oxygen Saturation 97% 08/06/2019 3:00 AM CDT Inhaled Oxygen Concentration - - Weight 83.9 kg (185 lb) 08/06/2019 3:00 AM CDT Height 175.3 cm (5' 9") 08/06/2019 3:00 AM CDT Body Mass Index 27.32 08/06/2019 3:00 AM CDT documented in this encounter Discharge Instructions Debra Diaz MD - 08/06/2019 DIAGNOSIS Diagnoses that have been ruled out: None Diagnoses that are still under consideration: None Final diagnoses: Toothache NO LIFE-THREATENING FINDINGS ON TODAY'S EXAM. PROCEDURES IN THE ER TODAY: No orders of the defined types were placed in this encounter. MEDICATIONS ADMINISTERED IN THE ER TODAY AND DISCHARGE MEDICATIONS: Orders Placed This Encounter Medications ketorolac (TORADOL) injection 60 mg HYDROcodone-acetaminophen (NORCO) 10-325 mg tablet 1 tablet FOLLOW-UP RECOMMENDATIONS: RECOMMEND FOLLOW-UP WITH DENTIST OF CHOICE TODAY DISCUSSED documented in this encounter Plan of Treatment Health Maintenance Due Date Last Done Comments VARICELLA VACCINES (1 of - + 1995 2-dose series) DTaP,Tdap,and Td Vaccines (2001 Tdap) INFLUENZA VACCINE (Retired 07/25/2019 version) PNEUMOCOCCAL 0-64 YEARS COMBINED Aged Out No longer eligible based on SERIES patient's age to complete this topic documented as of this encounter Procedures Procedure Name Priority Date/Time Associated Diagnosis Comments DENTAL BLOCK Routine 08/06/2019 3:40 AM Results for this CDT procedure are in the results section. documented in this encounter Results Dental Block (08/06/2019 3:40 AM CDT) Narrative Performed At Debra Antunez MD 08/06/20193:42 AM Dental Block Date/Time: 08/06/2019 3:40 AM Performed by: Debra Antunez MD Authorized by: Debra Antunez MD Consent: Consent obtained:Verbal Consent given by:Patient Risks discussed:Allergic reaction, hematoma, infection, intravascular injection, nerve damage, pain, swelling and unsuccessful block Alternatives discussed:Referral Indications: Indications: dental pain Location: Block type:Inferior alveolar Laterality:Right Procedure details (see MAR for exact dosages): Needle gauge:27 G Anesthetic injected:Bupivacaine 0.5% WITH epi Injection procedure:Anatomic landmarks identified, introduced needle, incremental injection, negative aspiration for blood and anatomic landmarks palpated Post-procedure details: Outcome:Pain improved Patient tolerance of procedure:Tolerated well, no immediate complications documented in this encounter Visit Diagnoses Diagnosis Toothache - Primary Unspecified disorder of the teeth and supporting structures documented in this encounter Administered Medications Medication Order MAR Action Action Date Dose Rate Site HYDROcodone-acetaminophen (NORCO) 10-325 mg tablet 1 tablet 1 tablet, Oral, ONCE NOW, 1 dose, Fri08/06/19 at 0445, Routine Medication Order MAR Action Action Date Dose Rate Site ketorolac (TORADOL) Given 08/06/2019 3:48 AM 60 mg Right injection 60 mg CDT Dorsogluteal-IM 60 mg, Intramuscular, ONCE, 1 dose, Fri08/06/19 at 0445, PRISCILLA, member of the legislative council approving Restricted medication: DEBRA ANTUNEZ documented in this encounter
[2019-08-07] MEDS ORDERED: KETOROLAC 30 MG/ML INJ ONE (17:56)
--- NOTE | 2019-08-07 18:01 | ER ---
Nurse's Notes [facility] Name: Anil Prasad Age: 39 yrs Sex: Male : 1980 Arrival Date: 08/07/2019 Time: 16:31 Bed 7 Private MD: Diagnosis: Dental fracture;Dental caries Presentation: 08/07 16:45 Presenting complaint: Patient states: Chipped tooth and pain and swelling on upper and sg lower jaws, pt states has had sever pain today with swelling as well. Transition of care: patient was not received from another setting of care. Onset of symptoms was August 07, 2019. Risk Assessment: Do you want to hurt yourself or someone else? Patient reports no desire to harm self or others. Initial Sepsis Screen: Does the patient meet any 2 criteria? No. Patient's initial sepsis screen is negative. Does the patient have a suspected source of infection? No. Patient's initial sepsis screen is negative. Care prior to arrival: None. 16:45 Method Of Arrival: Ambulatory sg 16:45 Acuity: BERTRAND 5 sg Historical: - Allergies: 16:46 No Known Allergies; sg - PMHx: 16:46 Asthma; sg - PSHx: 16:46 Appendectomy; sg - Immunization history:: Adult Immunizations not up to date. - Social history:: Smoking status: Patient/guardian denies using tobacco. - Ebola Screening: : Patient negative for fever greater than or equal to 101.5 degrees Fahrenheit, and additional compatible Ebola Virus Disease symptoms Patient denies exposure to infectious person Patient denies travel to an Ebola-affected area in the 21 days before illness onset No symptoms or risks identified at this time. Screenin:28 Abuse screen: Denies threats or abuse. Nutritional screening: No deficits noted. tw2 Tuberculosis screening: No symptoms or risk factors identified. Fall Risk None identified. Assessment: 17:48 General: Appears in no apparent distress. Behavior is calm, cooperative, appropriate tw2 for age. Pain: Complains of pain in gums, right buccal mucosa, lower right second bicuspid, lower right first molar and lower right second molar. Neuro: Level of Consciousness is awake, alert, obeys commands, Oriented to person, place, time, situation. Cardiovascular: Patient's skin is warm and dry. Respiratory: Airway is patent Respiratory effort is even, unlabored, Respiratory pattern is regular, symmetrical. GI: No signs and/or symptoms were reported involving the gastrointestinal system. : No signs and/or symptoms were reported regarding the genitourinary system. EENT: Reports "chipped my tooth and the pain hurts on the top and bottom". Derm: No signs and/or symptoms reported regarding the dermatologic system. Musculoskeletal: No signs and/or symptoms reported regarding the musculoskeletal system. Range of motion: intact in all extremities. 18:25 Reassessment: Patient appears in no apparent distress at this time. Patient and/or sv family updated on plan of care and expected duration. Pain level reassessed. Patient is alert, oriented x 3, equal unlabored respirations, skin warm/dry/pink. Vital Signs: 16:45 BP 136 / 86; Pulse 87; Resp 16; Temp 98.6; Pulse Ox 99% on R/A; Weight 73.48 kg; Height sg 5 ft. 8 in. (172.72 cm); Pain 10/10; 16:45 Body Mass Index 24.63 (73.48 kg, 172.72 cm) sg ED Course: 16:31 Patient arrived in ED. rg4 16:45 Triage completed. sg 16:45 Arm band placed on. sg 17:26 Bed in low position. Call light in reach. tw2 17:28 Dina Wellington RN is Primary Nurse. tw2 17:41 Mateo Glasgow PA is PHCP. jr8 17:41 Johny Araujo MD is Attending Physician. jr8 18:25 No provider procedures requiring assistance completed. Patient did not have IV access sv during this emergency room visit. Administered Medications: 17:58 Drug: TORadol - Ketorolac 15 mg Route: IM; Site: right deltoid; tw2 18:25 Follow up: Response: No adverse reaction sv Outcome: 17:59 Discharge ordered by . jr8 18:25 Discharged to home ambulatory. sv 18:25 Condition: stable 18:25 Discharge instructions given to patient, Instructed on discharge instructions, follow up and referral plans. medication usage, Demonstrated understanding of instructions, follow-up care, medications, Prescriptions given X 3. 18:25 Patient left the ED. sv Signatures: Deann Dooley RN RN Stewart Diaz RN RN Mateo Glasgow PA PA jr8 Dina Wellington RN RN tw2 Alireza, Shannon rg4
--- NOTE | 2019-08-07 18:02 | EDPHYS ---
Physician Documentation [facility] Name: Anil Prasad Age: 39 yrs Sex: Male : 1980 Arrival Date: 08/07/2019 Time: 16:31 Bed 7 Private MD: ED Physician Johny Araujo HPI: 08/07 17:52 This 39 yrs old Other Male presents to ER via Ambulatory with complaints of Toothache. jr8 17:54 The patient presents with broken tooth/teeth. The problem is located in the upper right jr8 first molar and upper right second molar. Onset: The symptoms/episode began/occurred acutely, yesterday. Duration: The symptoms are continuous. Modifying factors: The symptoms are alleviated by nothing, the symptoms are aggravated by air, chewing, talking. Associated signs and symptoms: The patient has no apparent associated signs or symptoms. Severity of symptoms: At their worst the symptoms were mild, in the emergency department the symptoms are unchanged. The patient has not experienced similar symptoms in the past. The patient has not recently seen a physician. stated that he was eating dinner and broke his tooth. Pain since then . Historical: - Allergies: 16:46 No Known Allergies; sg - PMHx: 16:46 Asthma; sg - PSHx: 16:46 Appendectomy; sg - Immunization history:: Adult Immunizations not up to date. - Social history:: Smoking status: Patient/guardian denies using tobacco. - Ebola Screening: : Patient negative for fever greater than or equal to 101.5 degrees Fahrenheit, and additional compatible Ebola Virus Disease symptoms Patient denies exposure to infectious person Patient denies travel to an Ebola-affected area in the 21 days before illness onset No symptoms or risks identified at this time. ROS: 17:54 Eyes: Negative for injury, pain, redness, and discharge, Neck: Negative for injury, jr8 pain, and swelling, Cardiovascular: Negative for chest pain, palpitations, and edema, Respiratory: Negative for shortness of breath, cough, wheezing, and pleuritic chest pain, Abdomen/GI: Negative for abdominal pain, nausea, vomiting, diarrhea, and constipation, Back: Negative for injury and pain, MS/Extremity: Negative for injury and deformity, Skin: Negative for injury, rash, and discoloration, Neuro: Negative for headache, weakness, numbness, tingling, and seizure. 17:54 ENT: Positive for dental pain, Negative for Gum pain rhinorrhea, sinus congestion, sinus pain, sore throat, difficulty swallowing, difficulty handling secretions, hoarseness. Exam: 17:54 Eyes: Pupils equal round and reactive to light, extra-ocular motions intact. Lids and jr8 lashes normal. Conjunctiva and sclera are non-icteric and not injected. Cornea within normal limits. Periorbital areas with no swelling, redness, or edema. Neck: Trachea midline, no thyromegaly or masses palpated, and no cervical lymphadenopathy. Supple, full range of motion without nuchal rigidity, or vertebral point tenderness. No Meningismus. Cardiovascular: Regular rate and rhythm with a normal S1 and S2. No gallops, murmurs, or rubs. Normal PMI, no JVD. No pulse deficits. Respiratory: Lungs have equal breath sounds bilaterally, clear to auscultation and percussion. No rales, rhonchi or wheezes noted. No increased work of breathing, no retractions or nasal flaring. Abdomen/GI: Soft, non-tender, with normal bowel sounds. No distension or tympany. No guarding or rebound. No evidence of tenderness throughout. Back: No spinal tenderness. No costovertebral tenderness. Full range of motion. Skin: Warm, dry with normal turgor. Normal color with no rashes, no lesions, and no evidence of cellulitis. MS/ Extremity: Pulses equal, no cyanosis. Neurovascular intact. Full, normal range of motion. Neuro: Awake and alert, GCS 15, oriented to person, place, time, and situation. Cranial nerves II-XII grossly intact. Motor strength 5/5 in all extremities. Sensory grossly intact. Cerebellar exam normal. Normal gait. 17:54 ENT: Exam is negative for earache, ear discharge, TM abnormalities, nasal discharge, pharyngitis, Dental exam: dental caries, that is moderate, diffusely, fractured teeth are noted, specifically the upper right second molar (#2) and upper right first molar (#3), pain, that is moderate, specifically in the upper right second molar (#2) and upper right first molar (#3). Vital Signs: 16:45 BP 136 / 86; Pulse 87; Resp 16; Temp 98.6; Pulse Ox 99% on R/A; Weight 73.48 kg; Height sg 5 ft. 8 in. (172.72 cm); Pain 10/10; 16:45 Body Mass Index 24.63 (73.48 kg, 172.72 cm) MDM: 17:41 Patient medically screened. jr8 17:54 Data reviewed: vital signs, nurses notes, and as a result, I will discharge patient. jr8 Data interpreted: Pulse oximetry: on room air is 99 %. Interpretation: normal. Counseling: I had a detailed discussion with the patient and/or guardian regarding: the historical points, exam findings, and any diagnostic results supporting the discharge/admit diagnosis, the need for outpatient follow up, a dentist, to return to the emergency department if symptoms worsen or persist or if there are any questions or concerns that arise at home. Administered Medications: 17:58 Drug: TORadol - Ketorolac 15 mg Route: IM; Site: right deltoid; tw2 18:25 Follow up: Response: No adverse reaction sv Disposition: 08/07/19 17:59 Discharged to Home. Impression: Dental fracture, Dental caries. - Condition is Stable. - Discharge Instructions: Dental Caries, Adult, Dental Pain. - Prescriptions for Amoxicillin 875 mg Oral Tablet - take 1 tablet by ORAL route every 12 hours for 10 days; 20 tablet. Ibuprofen 800 mg Oral Tablet - take 1 tablet by ORAL route every 8 hours As needed take with food; 30 tablet. Tramadol 50 mg Oral Tablet - take 1 tablet by ORAL route every 8 hours as needed; 12 tablet. - Medication Reconciliation Form, Thank You Letter, Antibiotic Education, Prescription Opioid Use form. - Follow up: Private Physician; When: 2 - 3 days; Reason: Recheck today's complaints, Continuance of care, Re-evaluation by your physician. - Problem is new. - Symptoms have improved. Addendum: 08/09/2019 09:39 Co-signature as Attending Physician, Johny Araujo MD I agree with the assessment and k dr plan of care. Signatures: Deann Dooley RN ARAM Stewart Diaz RN RN Johny Araujo MD MD [facility] Mateo Glasgow PA PA jr8 Dina Wellington RN RN tw2 Corrections: (The following items were deleted from the chart) 08/07 18:25 17:59 08/07/2019 17:59 Discharged to Home. Impression: Dental fracture; Dental caries. sv Condition is Stable. Forms are Medication Reconciliation Form, Thank You Letter, Antibiotic Education, Prescription Opioid Use. Follow up: Private Physician; When: 2 - 3 days; Reason: Recheck today's complaints, Continuance of care, Re-evaluation by your physician. Problem is new. Symptoms have improved. jr8
[2019-08-07 21:01] VITALS: BP 136/86; TEMP 98.6; O2SAT 99
== END 2019-08-07 18:25 | disposition home or self-care (01) ==
LOC: ER 16:29
DX: S02.5XXA Fracture of tooth (traumatic), initial encounter for closed fracture (principal)
CPT/HCPCS: 96372; 99283

== ENCOUNTER 2019-08-23 08:57 | Emergency (ER) | payer SELFPAY ==
[2019-08-23] MEDS ORDERED: MEPERIDINE HCL 25 MG/0.5 ML ONE ×2 (09:14→10:41)
[2019-08-23] MEDS ORDERED: NA CHLORIDE 0.9% 1,000 ML ONE ×2 (09:14→12:02)
[2019-08-23] MEDS ORDERED: PROMETHAZINE 25 MG/ML VIAL ONE (09:14)
[2019-08-23 09:21] LABS: Absolute Lymphocytes (CBC) 2.4 K/uL (0.7-4.9); Basophils % 0.5 % (0-1.3); Hematocrit 42.3 % (39.6-49.0); Lymphocytes % 25.6 % (15.3-44.8); RBC Red Blood Cell Count 4.62 M/uL (4.33-5.43)
[2019-08-23 09:41] LABS: ALT/SGPT 12 U/L (12-78); AST/SGOT 16 U/L (15-37); Albumin 3.5 g/dL (3.4-5.0); Alkaline Phosphatase 86 U/L (45-117); BUN Blood Urea Nitrogen 11 mg/dL (7-18); Bicarbonate 28 mmol/L (21-32); Bilirubin Direct 0.1 mg/dL (0-0.2); Bilirubin Total 0.4 mg/dL (0.2-1.0); Glucose Level 117 mg/dL (74-106); Lipase 101 U/L (73-393); Potassium 3.8 mmol/L (3.5-5.1); Protein, Total 6.8 g/dL (6.4-8.2); Sodium Level 142 mmol/L (136-145)
[2019-08-23] MEDS ORDERED: MEPERIDINE HCL 25 MG/0.5 ML IV ONE (10:37)
[2019-08-23 10:59] LABS: Urine Blood NEGATIVE (NEG); Urine Glucose NEGATIVE (NEG); Urine Protein NEGATIVE (NEG)
--- NOTE | 2019-08-23 14:36 | RAD REPORT ---
EXAM DESCRIPTION: CT STONE PROTOCOL CLINICAL HISTORY: Right sided abdominal and flank pain, COMPARISON: TECHNIQUE: Contiguous axial images obtained through the abdomen and pelvis without IV contrast Coronal and Sagittal reformatted images provided. This exam was performed according to our departmental dose-optimization program, which includes automated exposure control, adjustment of the mA and/or kV according to patient size and/or use of iterative reconstruction technique. FINDINGS: Inferior lung wilson are clear. Limited non-contrast imaging of the liver, spleen, pancreas, adrenal glands and kidneys are within normal limits. No urinary tract stone or obstructive uropathy. The appendix is not discretely identified however there are no secondary findings of acute appendicitis identified in the right lower quadrant. No fracture is present. No bowel obstruction, free air or abscess. IMPRESSION: 1. No evidence of urinary tract stone or obstructive uropathy. 2. There is no secondary findings of acute appendicitis seen. The appendix itself is not discretely identified however.
--- NOTE | 2019-08-23 15:37 | ER ---
Nurse's Notes [facility] Name: Anil Prasad Age: 39 yrs Sex: Male : 1980 Arrival Date: 08/23/2019 Time: 09:00 Bed External Waiting [facility] MD: Diagnosis: Vomiting, unspecified;Diarrhea, unspecified;Lower abdominal pain, unspecified Presentation: 08/23 09:00 Presenting complaint: EMS states: RLQ PAIN WITH N/V SINCE Y/D. Transition of care: bp patient was not received from another setting of care. Onset of symptoms is unknown. Risk Assessment: Do you want to hurt yourself or someone else? Patient reports no desire to harm self or others. Initial Sepsis Screen: Does the patient meet any 2 criteria? No. Patient's initial sepsis screen is negative. Does the patient have a suspected source of infection? No. Patient's initial sepsis screen is negative. Care prior to arrival: Medication(s) given: zofran 4 mg, IV initiated. 20 GA, in the left antecubital area, Glucose check: 106. 09:00 Method Of Arrival: EMS: [facility] bp 09:00 Acuity: BERTRAND 3 bp Triage Assessment: 09:02 General: Appears in no apparent distress. uncomfortable, Behavior is cooperative, bp appropriate for age, anxious. Pain: Complains of pain in abdomen. EENT: No deficits noted. Neuro: No deficits noted. Cardiovascular: No deficits noted. Respiratory: No deficits noted. GI: Abdomen is non-distended, Abdomen is tender to palpation in right lower quadrant. : No signs and/or symptoms were reported regarding the genitourinary system. Derm: No deficits noted. Musculoskeletal: No deficits noted. - Immunization history:: Adult Immunizations up to date. - Social history:: Smoking status: Patient/guardian denies using tobacco. - Family history:: not pertinent. - Ebola Screening: : No symptoms or risks identified at this time. - Hospitalizations: : No recent hospitalization is reported. Screenin:06 Abuse screen: Denies threats or abuse. Denies injuries from another. Nutritional bp screening: No deficits noted. Tuberculosis screening: No symptoms or risk factors identified. Fall Risk None identified. Assessment: 09:05 General: SEE TRIAGE NOTE. GI: Bowel sounds present X 4 quads. bp 10:52 Reassessment: ALL ORDERS COMPLETED, RESULTS UNREMARKABLE. MD NOTIFIED. bp 11:38 Reassessment: PT D/ C ON HOLD 2/2 DIZZINESS. MD INFORMED. bp 13:07 Reassessment: PT CLEARED FOR DISCHARGE, VS STABLE, AMBULATORY WITH STEADY GAIT. D/C bp HOME, DX WITH NAUSEA AND VOMITING. Vital Signs: 09:02 BP 152 / 83; Pulse 85; Resp 17; Temp 97.9; Pulse Ox 98% ; Weight 82.55 kg; Height 5 ft. bp 8 in. (172.72 cm); 10:52 BP 145 / 91; Pulse 85; Resp 17; Pulse Ox 96% ; bp 11:39 BP 116 / 105; Pulse 77; Resp 17; Pulse Ox 100% ; bp 13:07 BP 120 / 89; Pulse 71; Resp 16; Temp 98; Pulse Ox 98% ; bp 09:02 Body Mass Index 27.67 (82.55 kg, 172.72 cm) bp ED Course: 09:00 Patient arrived in ED. as 09:00 Eamon Powell RN is Primary Nurse. bp 09:00 Bobby Woods MD is Attending Physician. rn 09:02 Triage completed. bp 09:05 Arm band placed on. bp 09:05 Maintain EMS IV. Dressing intact. Good blood return noted. Site clean \T\ dry. Gauge \T\ bp site: 20 GAUGE LEFT AC. 09:06 Patient has correct armband on for positive identification. Bed in low position. Call bp light in reach. Side rails up X 1. 09:08 Initial lab(s) drawn, by nv, sent to lab. 3 10:51 Urine collected: clean catch specimen, clear. 3 13:08 No provider procedures requiring assistance completed. IV discontinued, intact, bp bleeding controlled, No redness/swelling at site. Pressure dressing applied. Administered Medications: No medications were administered Outcome: 11:05 Discharge ordered by . rn 13:09 Discharged to home ambulatory. bp 13:09 Condition: stable 13:09 Discharge instructions given to patient, Instructed on discharge instructions, follow up and referral plans. medication usage, Demonstrated understanding of instructions, follow-up care, medications, Prescriptions given X 2. 15:36 Patient left the ED. iw Signatures: Lurdes Stoddard Irene, RN RN Bobby Woods MD MD rn Herrera, Deanna [facility] Eamon Powell, RN RN bp
--- NOTE | 2019-08-23 15:37 | EDPHYS ---
Physician Documentation [facility] Name: Anil Prasad Age: 39 yrs Sex: Male : 1980 Arrival Date: 08/23/2019 Time: 09:00 Bed External Waiting Private MD: ED Physician Bobby Woods HPI: 08/23 09:12 This 39 yrs old Other Male presents to ER via EMS with complaints of Abdominal Pain. rn 09:12 The patient presents with abdominal pain right lower quadrant. Onset: The rn symptoms/episode began/occurred yesterday. The symptoms do not radiate. Associated signs and symptoms: Pertinent positives: nausea and vomiting, diarrhea, Pertinent negatives: blood in stools, fever, testicular pain. The symptoms are described as crampy, intermittent. Modifying factors: The symptoms are alleviated by nothing, the symptoms are aggravated by touching the area. Severity of pain: At its worst the pain was mild in the emergency department the pain is unchanged. The patient has not experienced similar symptoms in the past. The patient has not recently seen a physician. REports lower abd pain with nausea/vomiting/diarrhea. Has had appendix removed. NO fever. No sick contacts. . - Immunization history:: Adult Immunizations up to date. - Social history:: Smoking status: Patient/guardian denies using tobacco. - Family history:: not pertinent. - Ebola Screening: : No symptoms or risks identified at this time. - Hospitalizations: : No recent hospitalization is reported. ROS: 09:12 Constitutional: Negative for fever, chills, and weight loss, Eyes: Negative for injury, rn pain, redness, and discharge, Neck: Negative for injury, pain, and swelling, Cardiovascular: Negative for chest pain, palpitations, and edema, Respiratory: Negative for shortness of breath, cough, wheezing, and pleuritic chest pain, Abdomen/GI: + abd pain with nausea/vomiting/diarrhea MS/Extremity: Negative for injury and deformity, Skin: Negative for injury, rash, and discoloration, Neuro: Negative for headache, numbness, tingling, and seizure. Exam: 09:12 Constitutional: This is a well developed, well nourished patient who is awake, alert, rn and in no acute distress. Head/Face: Normocephalic, atraumatic. Eyes: Pupils equal round and reactive to light, extra-ocular motions intact. Lids and lashes normal. Conjunctiva and sclera are non-icteric and not injected. Cornea within normal limits. Periorbital areas with no swelling, redness, or edema. ENT: dry MM Cardiovascular: Regular rate and rhythm. No pulse deficits. Respiratory: Lungs have equal breath sounds bilaterally, clear to auscultation. No increased work of breathing, no retractions or nasal flaring. Abdomen/GI: soft, mild tenderness RLQ and suprapubic region, no rebound MS/ Extremity: Pulses equal, no cyanosis. Neurovascular intact. Full, normal range of motion. Equal circumference. Neuro: Awake and alert, GCS 15, oriented to person, place, time, and situation. Cranial nerves II-XII grossly intact. Motor strength 5/5 in all extremities. Sensory grossly intact. Cerebellar exam normal. Vital Signs: 09:02 BP 152 / 83; Pulse 85; Resp 17; Temp 97.9; Pulse Ox 98% ; Weight 82.55 kg; Height 5 ft. bp 8 in. (172.72 cm); 10:52 BP 145 / 91; Pulse 85; Resp 17; Pulse Ox 96% ; bp 11:39 BP 116 / 105; Pulse 77; Resp 17; Pulse Ox 100% ; bp 13:07 BP 120 / 89; Pulse 71; Resp 16; Temp 98; Pulse Ox 98% ; bp 09:02 Body Mass Index 27.67 (82.55 kg, 172.72 cm) bp MDM: 09:00 Patient medically screened. rn 10:43 Differential diagnosis: diverticulitis, gastritis, non-specific abd pain, pancreatitis, rn Ureterolithiasis. Data reviewed: vital signs, nurses notes, lab test result(s), radiologic studies, CT scan, and as a result, I will discharge patient. Counseling: I had a detailed discussion with the patient and/or guardian regarding: the historical points, exam findings, and any diagnostic results supporting the discharge/admit diagnosis, lab results, radiology results, the need for outpatient follow up, to return to the emergency department if symptoms worsen or persist or if there are any questions or concerns that arise at home. Medical screen evaluation completed. [facility] emergency medical condition absent. Response to treatment: the patient's symptoms have mildly improved after treatment. Special discussion: Based on the patient's Hx, exam, and Dx evaluation, there is no indication for emergent surgery or inpatient Tx. It is understood by the patient/guardian that if the Sx's persist or worsen they need to return immediately for re-evaluation. I discussed with the patient/guardian in detail that at this point there is no indication for admission to the hospital. It is understood, however, that if the symptoms persist or worsen the patient needs to return immediately for re-evaluation. ED course: CT without acute findings, will dc home as viral syndrome with prn nausea meds. . 08/23 15:35 Order name: Basic Metabolic Panel EDMS 08/23 15:35 Order name: CBC with Automated Diff EDMS 08/23 15:35 Order name: CT EDMS 08/23 15:35 Order name: Lipase EDMS 08/23 15:35 Order name: Liver (Hepatic) Function EDMS Administered Medications: No medications were administered Disposition: 08/23/19 11:05 Discharged to Home. Impression: Vomiting, unspecified, Diarrhea, unspecified, Lower abdominal pain, unspecified. - Condition is Stable. - Discharge Instructions: Abdominal Pain, Adult, Diarrhea, Adult, Nausea and Vomiting, Adult. - Prescriptions for Zofran ODT 4 mg Oral tablet,disintegrating - place 1 tablet by TRANSLINGUAL route every 8 hours As needed; 20 tablet. Ultram 50 mg Oral Tablet - take 1 tablet by ORAL route every 6 hours As needed; 15 tablet. - Medication Reconciliation Form, Thank You Letter, Antibiotic Education, Prescription Opioid Use form. - Follow up: Private Physician; When: As needed; Reason: Recheck today's complaints, Re-evaluation by your physician. - Problem is new. - Symptoms have improved. Signatures: Prudence Fair RN RN iw Nieto, Roman, MD MD rn Peltier, Brian, RN RN bp Corrections: (The following items were deleted from the chart) 15:36 11:05 08/23/2019 11:05 Discharged to Home. Impression: Vomiting, unspecified; Diarrhea, iw unspecified; Lower abdominal pain, unspecified. Condition is Stable. Forms are Medication Reconciliation Form, Thank You Letter, Antibiotic Education, Prescription Opioid Use. Follow up: Private Physician; When: As needed; Reason: Recheck today's complaints, Re-evaluation by your physician. Problem is new. Symptoms have improved. rn
[2019-08-23 16:45] VITALS: BP 120/89; TEMP 98; O2SAT 98
== END 2019-08-23 15:36 | disposition home or self-care (01) ==
LOC: ER 08:57
DX: R19.7 Diarrhea, unspecified (principal); R10.31 Right lower quadrant pain
CPT/HCPCS: 36415; 74176; 76377; 80048; 80076; 81003; 83690; 85025; 99283; J2175; J2550; J7030